=== PATIENT | male | born 1965 | race Caucasian/White ===

== ENCOUNTER 2022-03-31 08:53 | Outpatient (CLI) | payer BC, SELFPAY ==
--- NOTE | 2022-03-31 09:15 | CRLHL7_ITS ---
For Patients: As a result of the Century Cures Act, medical imaging exams and procedure reports are released immediately into your electronic medical record. You may view this report before your referring provider. If you have questions, please contact your health care provider. Technique: Double-contrast esophagram performed after the uneventful administration of effervescent crystals and thick barium followed by thin barium. Fluoroscopy time 1 minutes 10 seconds. Indication: Dysphagia Comparison: None. Findings: Esophagus: Normal morphology and motility. No stricture or mass. Gastroesophageal reflux: None. Impression: Normal double-contrast esophagram. Specifically, the mid/proximal esophagus appears normal without mucosal abnormality or stricture. Dictated by Yazan Madrid MD @ 03/31/2022 11:37:17 AM (Electronically Signed)
== END 2022-03-31 08:54 | disposition home or self-care (01) ==
LOC: RAD 08:53
PROVIDERS: PCP Internal Medicine; Visit Provider Otolaryngology
DX: R13.10 Dysphagia, unspecified (principal)
CPT/HCPCS: 74221

== ENCOUNTER 2022-05-31 06:24 | Day surgery (SDC) | payer BC, SELFPAY ==
[2022-05-31] VITALS (8 sets, daily range): BP systolic 120–132; BP diastolic 74–87; PULSE 63–76; RESP 14–18; TEMP 36.1–36.4; O2SAT 97–100; BMI 62.5
[2022-05-31] MEDS: BUPIVACAINE 0.5% 30 ML INJECTION (07:00)
--- NOTE | 2022-05-31 07:36 | P.ORPRC_ITS ---
Procedure Note Date of procedure: 05/31/22 Procedure: PREOPERATIVE DIAGNOSIS: 1. Left index finger flexor tenosynovitis - trigger finger POSTOPERATIVE DIAGNOSIS: 1. Left index finger flexor tenosynovitis - trigger finger PROCEDURE: 1. Left index finger flexor tendon sheath open release (A1 ton) SURGEON: Wally Patterson MD. REGIONAL OFFICE COORDINATOR: Juan David Blackwell PA-C ANESTHESIA: Local anesthetic 4 mL via 50:50 mixture of 1% lidocaine with epi and 0.5% marcaine plain EBL: 2ml IMPLANTS: None TOURNIQUET: None COMPLICATIONS: None evident INDICATIONS: The patient is a pleasant 57-year-old male who has experienced left index finger catching/triggering for number of months. It has progressively gotten worse. Given the failure of nonoperative management, and how this affects daily life, surgery was recommended. DESCRIPTION OF PROCEDURE: Following a thorough discussion of risks, benefits, and alternatives consent was obtained and the operative digit(s) was marked. The patient was brought to the operating room and placed supine on the operating table. Local anesthesia induction was undertaken in preop holding. No antibiotics were administered as this was planned to be a local case only. Proper time-out was performed identifying proper patient, site, and procedure. The operative extremity was prepped and draped in the appropriate sterile fashion using ChloraPrep. A incision was made on the palmar surface of the hand overlying the MCP joint region of the appropriate digit(s) respecting the palmar creases being cautious not to cross these perpendicularly. Sharp incision through the skin, and blunt dissection through subcutaneous tissue allowing protection of crossing neurologic structures. The A1 ton was visualized directly. It was incised sharply with a 15 blade. It was released completely from its distal to proximal extent under direct visualization. The tendon was inspected and found to be mildly striated consistent with some friction. Otherwise, it was intact. The tendon was removed out of the wound, and further inspected. The patient was asked to manually flex and extend the digits and showed no further catching. The catching which was visualized after tourniquet inflation, was no longer evident with reproduction of a manual fist and relaxation. Closure was performed with 4-O nylon in interrupted fashion. Soft dressings were applied, and the patient was transferred to the recovery room in stable condition. PLAN: 1. Encourage elevation of the operative extremity. 2. Range of motion and icing of the fingers and hand/wrist as tolerated/needed. 3. Ibuprofen/acetaminophen as needed for pain control. 4. Follow up with PA visit in 12-16 days for wound check and suture removal.
[2022-05-31] MEDS: NEOMYCIN/BACITRACIN/POLYMYXIN B 1 APPLIC TOPICAL (07:47)
== END 2022-05-31 08:00 | disposition home or self-care (01) ==
PROVIDERS: PCP Internal Medicine; Visit Provider Orthopaedic Surgery Sports Medicine
PROC: (CPT 26055; principal; 2022-05-31 07:15)
DX: M65.322 Trigger finger, left index finger (principal); M65.842 Other synovitis and tenosynovitis, left hand
CPT/HCPCS: 26055; J3490

== ENCOUNTER 2022-11-24 08:09 | Outpatient (CLI) | payer BC, SELFPAY | END 2022-11-24 08:10 | disposition home or self-care (01) | LOC: NFLDREF 11-26 06:58 | PROVIDERS: PCP Internal Medicine; Referring Provider Internal Medicine; Visit Provider Internal Medicine | DX: Z00.00 Encounter for general adult medical examination without abnormal findings (principal); E78.5 Hyperlipidemia, unspecified; R53.1 Weakness; Z12.5 Encounter for screening for malignant neoplasm of prostate | CPT/HCPCS: 80053; 80061; 82607; 82728; 83540; 83550; 84153 ==

== ENCOUNTER 2022-11-27 10:28 | Outpatient (CLI) | payer BC, SELFPAY | END 2022-11-27 10:29 | disposition home or self-care (01) | LOC: NFLDREF 11-29 11:32 | PROVIDERS: PCP Internal Medicine; Referring Provider Internal Medicine; Visit Provider Internal Medicine | DX: Z00.00 Encounter for general adult medical examination without abnormal findings (principal); R53.1 Weakness; E78.5 Hyperlipidemia, unspecified; H66.90 Otitis media, unspecified, unspecified ear | CPT/HCPCS: 85045 ==

== ENCOUNTER 2023-03-06 08:57 | Outpatient (CLI) | payer BC, SELFPAY | END 2023-03-06 08:58 | disposition home or self-care (01) | PROVIDERS: PCP Internal Medicine; Visit Provider Internal Medicine | DX: R53.83 Other fatigue (principal); N39.0 Urinary tract infection, site not specified; R53.1 Weakness; E78.5 Hyperlipidemia, unspecified; Z12.5 Encounter for screening for malignant neoplasm of prostate | CPT/HCPCS: 80053; 80061; 84153; 84443; 87086; 87186 ==

== ENCOUNTER 2023-03-19 11:05 | Outpatient (CLI) | payer BC, SELFPAY | END 2023-03-19 11:06 | disposition home or self-care (01) | LOC: NFLDREF 03-21 06:40 | PROVIDERS: PCP Internal Medicine; Referring Provider Internal Medicine; Visit Provider Internal Medicine | DX: R97.20 Elevated prostate specific antigen [PSA] (principal); N39.0 Urinary tract infection, site not specified | CPT/HCPCS: 84153 ==

== ENCOUNTER 2023-12-18 16:10 | Outpatient (CLI) | payer BC, SELFPAY | END 2023-12-18 16:11 | disposition home or self-care (01) | LOC: NFLDREF 12-19 06:42 | PROVIDERS: PCP Internal Medicine; Referring Provider Internal Medicine; Visit Provider Internal Medicine | DX: E78.5 Hyperlipidemia, unspecified (principal); R53.83 Other fatigue; R97.20 Elevated prostate specific antigen [PSA] | CPT/HCPCS: 80053; 80061; G0103 ==

== ENCOUNTER 2024-01-10 09:15 | Outpatient (RCR) | payer BC, SELFPAY | END 2024-03-13 10:38 | disposition home or self-care (01) | PROVIDERS: PCP Internal Medicine; Visit Provider Physician Assistant Surgical | DX: M75.01 Adhesive capsulitis of right shoulder (principal); Z51.89 Encounter for other specified aftercare | CPT/HCPCS: 97110; 97140; 97161 ==

== ENCOUNTER 2024-03-31 11:27 | Outpatient (CLI) | payer BC, SELFPAY ==
--- NOTE | 2024-03-31 11:15 | MR_ITS ---
[facility] [address] [facility] [address] Phone:?[phone] Fax:?[phone] Referring Physician Information: Wally Patterson M.D. [address] [facility] [address] Phone:?[phone] Fax:?[phone] Patient:Melissa Sosa D.O.B:?1965 Sex:?Male Phone:?[phone] [facility] MRN:?[id number] Exam Date:?03/31/2024 EXAM: MRI of the RIGHT SHOULDER WITHOUT CONTRAST CLINICAL HISTORY: Ongoing right shoulder pain. Evaluate for rotator cuff tear. Adhesive capsulitis of right shoulder. COMPARISONS: Plain radiographs 12/18/2023. TECHNICAL: MRI sequences of the right shoulder: Axials: PD, T2 Coronals: PD, STIR, T2 Sagittals: PD, T2 SEDATION: None CONTRAST: None FINDINGS: Bones: No fracture or suspicious bone marrow signal abnormality. Coracoacromial arch: Acromion: No os acromiale. Type I-II acromion. Acromiohumeral space: The bony distance is unremarkable. Acromioclavicular joint: Mild degenerative changes. There is ill-definition and irregularity of and an ossification within the acromioclavicular ligament. Coracoclavicular ligament: Attenuation and ill-definition. There is superior positioning of the distal clavicle relative to the acromion. Rotator cuff muscles/tendons: Supraspinatus: Bursal sided fraying and mild tendinopathy. No retracted tendon tear or muscular atrophy. Infraspinatus: The infraspinatus tendon and muscle are intact. Teres minor: The teres minor tendon and muscle are intact. Subscapularis: Mild tendinopathy. No muscular atrophy. Labrum and glenohumeral joint: No evidence of labral tear although evaluation is suboptimal because of nonarthrogram technique. Trace glenohumeral joint effusion. No discrete chondral defect or subchondral bone marrow edema/cystic change is seen. There is edema-like signal within and thickening of the inferior glenohumeral ligament/glenohumeral joint capsule. Proximal biceps tendon, long head and short heads: The long and short heads of the proximal biceps tendon are intact. Bursae: Subacromial/subdeltoid: Mild bursitis. Subcoracoid: No convincing subcoracoid bursal thickening/bursitis. IMPRESSION: 1. Findings highly associated with adhesive capsulitis; correlate with active and passive range of motion. 2. Bursal sided fraying and mild tendinopathy of the supraspinatus tendon. 3. Mild subscapularis tendinopathy. 4. No well-defined/discrete retracted rotator cuff tendon tear or rotator cuff muscular atrophy. 5. Mild subacromial/subdeltoid bursitis. 6. 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 Correlate with clinical history. 7. Trace glenohumeral joint effusion. 8. Intact biceps tendon. RCB Electronically signed on 03/31/2024 2:37:00 PM by Ismael Burrows M.D.
--- OUTSIDE RECORDS SUMMARY | 2024-03-31 11:30 | XMS_ITS | Encounter Summary ---
Author Organization [facility] Address [address] [place] [address] Care Team Providers Care Newspaper Publisher Name Role Phone Elsewhere, Pcp Primary Care Provider Unavailabl e Reason for Visit * Reason Onset Date Comments Pre-visit Intake 01/15/2024 Encounter Details Date Type Department Care Team (Latest Contact Info) Description 01/15/2024 2:45 PM CDT Clinical Communication Virtual Review in [place], [place] [address] [place] [address] Pre-visit Intake Social History Tobacco Use Types Packs/Day Years Used Date Smoking Tobacco: Never Smokeless Tobacco: Never Alcohol Use Standard Drinks/Week Comments No 0 (1 standard drink = 0.6 oz pur e alcohol) [facility] Utilities Answer Date Recorded In the past 12 months has th e electric, gas, oil, or water company threatened to shut off services in your home? No 12/31/2023 Exercise Vital Sign Answer Date Recorde d On average, how many days pe r week do you engage in moderate to strenuous exercise (like a brisk walk)? 4 days 12/31/2023 On average, how many minutes do you engage in exercise at this level? 30 min 12/31/2023 Hunger Vital Sign Answer Date Recorded Within the past 12 months, y ou worried that your food would run out before you got the money to buy more. Never true 12/31/19 24 Within the past 12 months, t he food you bought just didn't last and you didn't have money to get more. Never true 12/31/2023 PRAPARE - Transportation Answer Date Re corded In the past 12 months, has l ack of transportation kept you from medical appointments or from getting medications? No 12/16 In the past 12 months, has l ack of transportation kept you from meetings, work, or from getting things needed for daily living? No 12/31/2023 Nutrition Answer Date Recorded On average, how many serving s of fruits and vegetables do you eat per day (serving size is equal to 1 cup or approximately the size of a tennis ball)? 3-5 12/31/2023 Dental Answer Date Recorded Dental: Regular Dentist Yes 12/31/19 Employment Answer Date Recorded Employment status Retired 12/31/2023 Housing Stability Answer Date Recorded What is your living situation today? I have a [facility] place to live 12/31/2023 Sex and Gender Information Value Date Recorded Sex Assigned at Male 03/12/2018 9:14 AM CDT Gender Identity Male 03/12/2018 9:14 AM CDT Sexual Orientation Straight 03/12/2018 9: 14 AM CDT documented as of this encounter Plan of Treatment Not on file documented as of this encounter Visit Diagnoses Not on filedocumented in this encounter Care Teams Newspaper Publisher Relationship Specialty Start Date End Date Elsewhere, Pcp PCP - General Family Medicine 04/22/18 documented as of this encounter
--- OUTSIDE RECORDS SUMMARY | 2024-03-31 11:30 | XMS_ITS | Encounter Summary ---
Author Organization [facility] Address [address] [place] [id number] Care Team Providers Care Set Designer Name Role Phone Elsewhere, Pcp Primary Care Provider Unavailabl e Reason for Visit * Outpatient (Routine) - Closed Specialty Diagnoses / Procedures Referred By Stacey maxwell Referred To Contact Orthopedic Surgery Latanya Malloy P.A.-C. [address] [place] [phone] Steev Villarreal M.D. [address] [place] [phone] Referral ID Status Reason Start Date Expiration Date Visits Re quested Visits Authorized [id number] Closed 01/07/2024 07/08/2025 1 1 Encounter Details Date Type Department Care Team (Late st Contact Info) Description 02/29/2024 2:30 PM CDT Office Visit Department of Orthopedic Surgery in [place], [place] [address] [place] [phone] Steve Villarreal M.D. [address] [place] [phone] Fusion Ankle Status Post (Primary Dx); Pain Joint Foot Left; Neuralgia Social History Tobacco Use Types Packs/Day Years Used Date Smoking Tobacco: Never Smokeless Tobacco: Never Alcohol Use Standard Drinks/Week Comments No 0 (1 standard drink = 0.6 oz pur e alcohol) [facility] Utilities Answer Date Recorded In the past 12 months has [employer], gas, oil, or water [employer] threatened to shut off services in your [...] money to buy more. Never true 12/31/19 Within the past 12 months, t he [...] your living situation today? I have a [facility] place to live 12/31/2023 Sex and Gender Information Value Date Recorded Sex Assigned at Male 03/12/2018 9:14 AM CDT Gender Identity Male 03/12/2018 9:14 AM CDT Sexual Orientation Straight 03/12/2018 9: 14 AM CDT documented as of this encounter Progress Notes * Steve Villarreal M.D. - 02/29/2024 2:30 PM CDT CHIEF COMPLAINT / PURPOSE OF VISIT: 1. Status post left ankle irrigation and debridement for septic arthritis 2. Left ankle arthrodesis with application of Nayeli spatial frame (May 13, 2018) 3. Status post left Nayeli spatial frame removal (August 21, 2018) 4. Left lower extremity intermittent sharp leg pains 5. Left forefoot pain, likely metatarsalgia HISTORY OF PRESENT ILLNESS: Steve Sosa returns for follow-up today. For further details, please refer my last note on January 07, 2024. His symptoms continue to persist. He did undergo the ultrasound-guided diagnosis and the intermediate dorsal cutaneous branch of the superficial peroneal nerve was injected. This might have helped his forefoot start-up pain but it is difficult to tell if this is help the shooting nerve pains(because these are more intermittent). PHYSICAL EXAMINATION: General: Awake and alert. No acute distress Skin: The skin is intact. Musc: Alignment ankle is satisfactory. Neuro: Sensation intact to light touch throughout but again decreased in a stocking-glove pattern up to knee level on the left. Vasc: Toes are well perfused No tenderness to palpation today. IMAGING: The ultrasound on February 29, 2024 demonstrated an area of thickening of the intermediate dorsal cutaneous branch of the superficial peroneal nerve. This area was injected. The EMG results from February 29, 2024 are also noted. ASSESSMENT & PLAN: The injection of the nerve seemed to help his vague deep forefoot start-up pain. However, difficultto tell if the shooting nerve pains that are radiating up the leg were effected. I recommended monitoring for this for now. Currently, I do not think that further surgical intervention will reliably improve his situation. I am hopeful that the injection will help calmed down the nerve pains. This is likely in the peroneal nerve distribution. It is possible that the pain is coming from his back but difficult to tell. However, I do not think that foot and ankle orthopedic surgery will improve hissituation. Therefore, he will continue with activities as tolerated. We will monitor the effects ofthe injection. He can continue with activities as tolerated. He can follow up with me on as-needed basis documented in this encounter Plan of Treatment Not on file documented as of this encounter Visit Diagnoses Diagnosis Fusion Ankle Status Post- Primary Pain Joint Foot Left Neuralgia documented in this encounter Care Teams Set Designer Relationship Specialty Start Date End Date Elsewhere, Pcp PCP - General Family Medicine 04/22/18 documented as of this encounter
--- OUTSIDE RECORDS SUMMARY | 2024-03-31 11:30 | XMS_ITS | Encounter Summary ---
Author Organization [facility] Er Address [address] [place] [id number] Care Team Providers Care Painting Department Supervisor Name Role Phone Elsewhere, Pcp Primary Care Provider Unavailabl e Reason for Referral * Outpatient (Routine) - Closed Specialty Diagnoses / Procedures Referred By Stacey maxwell Referred To Contact Diagnoses Neuralgia Procedures RAD US Peripheral Nerve Injection Left Latayna Malloy P.A.-C. [address] [place] [address] [facility] Referral ID Status Reason Start Date Expiration Date Visits Re quested Visits Authorized [id number] Closed 01/16/2024 01/15/2025 1 1 * Outpatient (Routine) - Closed Specialty Diagnoses / Procedures Referred By Stacey maxwell Referred To Contact Diagnoses Neuralgia Procedures US Lower Extremity Nerves Left Latanya Malloy P.A.-C. [address] [place] [address] [facility] Referral ID Status Reason Start Date Expiration Date Visits Re quested Visits Authorized [id number] Closed 01/16/2024 01/15/2025 1 1 Encounter Details Date Type Department Care Team (Late st Contact Info) Description 01/16/2024 Orders Only Department of Orthopedic Surgery in [place], [place] [address] [place] [id number] Latanya Malloy P.A.-C. [address] [place] [address] Neuralgia (Primary Dx) Social History Tobacco Use Types Packs/Day Years Used Date Smoking Tobacco: Never Smokeless Tobacco: Never Alcohol Use Standard Drinks/Week Comments No 0 (1 standard drink = 0.6 oz pur e alcohol) [facility] Utilities Answer Date Recorded In the past 12 months has th e [employer], gas, oil, or water [employer] threatened to shut off services in your [...] your living situation today? I have a [facility] to live 12/31/2023 Sex and Gender Information Value Date Recorded Sex Assigned at Male 03/12/2018 9:14 AM CDT Gender Identity Male 03/12/2018 9:14 AM CDT Sexual Orientation Straight 03/12/2018 9: 14 AM CDT documented as of this encounter Plan of Treatment Not on file documented as of this encounter Results * RAD US Peripheral Nerve Injection Left (02/29/2024 10:33 AM CDT) Anatomical Region Laterality Modality Ultrasound RST LOS, Ultrasound ARZ LOS, Jade wilsonetal FLA LOS Ultrasound Impressions 02/29/2024 10:54 AM CDT Sonographic interrogation of the following left-sided lower extremity nerves were performed: 1. Sciatic nerve from the level of the ischial tuberosity to the distal thigh. 2. Tibial nerve from its sciatic bifurcation through the mid leg. 3. Common peroneal nerve from its sciatic bifurcation and its superficial and deep branches through the midfoot/forefoot. The sciatic and tibial nerves are unremarkable without associated soft tissue masses or hypoechoic fluid collections. The common peroneal nerve is also unremarkable without sonographic findings to suggest significant compression as it traverses the musculoaponeurotic arch of the peroneus longus at the level of the knee. No sonographic findings for an intraneural ganglion cyst. The deep peroneal nerve from its common peroneal bifurcation is difficult to clearly identify in the middle third of the leg due to its relatively deep location. The remainder of the deep peroneal nerve to the level of the forefoot is unremarkable. There are no associated soft tissue masses or hypoechoic fluid collections. The superficial peroneal nerve from its common peroneal bifurcation through the ankle is unremarkable. The medial dorsal cutaneous branch of the superficial peroneal nerve through the forefoot is also unremarkable. The intermediate dorsal cutaneous branch of the superficial peroneal nerve demonstrates mild hypoechoic enlargement with a monofascicular like appearance through the forefoot which is similar to the contralateral right side. There is, however, minimal hypoechoic enlargement of one of the intermediate dorsal cutaneous nerve branches immediately after crossing over the extensor tendon to the fourth toe in the forefoot. This region slightly reproduces the patient's typical discomfort. There are no associated soft tissue masses or hypoechoic fluid collections in this region. After a thoughtful discussion, it was mutually decided to perform a diagnostic and potentially therapeutic injection of the intermediate dorsal cutaneous branch of the superficial peroneal nerve just proximal to this mild morphologic abnormality. TECHNIQUE: ??The patient's left dorsal forefoot was prepped and draped in the usual sterile fashion. Under sonographic guidance using a transverse in plane lateral to medial approach and a 25-gauge needle, the intermediate dorsal cutaneous branch of the superficial peroneal nerve was targeted just proximal to the above-mentioned mild morphologic abnormality. ??1 cc of 1% lidocaine was carefully and gently hydrodissected about the nerve followed by 1 cc of injectate. ??The patient tolerated the procedure well and there were no immediate complications. Medications: Betamethasone: 3 mg 0.5% ropivacaine: 2.5 mg Since Mr. Sosa's typical pain is intermittent and not present at this time, he will monitor for potential improvement over the following 2 weeks during the corticosteroid phase of his injection. PREPROCEDURE: ??Patient seen and evaluated. Allergies, pertinent medications, and history reviewed. Discussed risks, benefits, alternatives for procedure, and obtained informed consent. Patient understands information and questions answered. Immediately prior to starting the procedure, in the presence of the assisting personnel, procedural pause was conducted to verify correct patient identity and verification of procedure to be performed, and as applicable, correct side and site, correct patient position, availability of implants, special equipment, or special requirements, and all image and specimen identification data. The roles and responsibilities of care team members, residents, and fellows were discussed. NR Narrative 02/29/2024 10:54 AM CDT EXAM: US LOWER EXTREMITY NERVES LEFT, RAD US PERIPHERAL NERVE INJECTION LEFT COMPARISON: 1. Diagnostic ultrasound examination of the left ankle and foot 01/16/2024. 2. MRI examination of the left ankle 01/09/2024. 3. Left foot and ankle radiographs 01/07/2024. Procedure Note Francois Allan M.D. - 02/29/2024 EXAM: US LOWER EXTREMITY NERVES LEFT, RAD US PERIPHERAL NERVE INJECTIONLEFT COMPARISON: 1. Diagnostic ultrasound examination of the left ankle and foot01/16/2024. 2. MRI examination of the left ankle 01/09/2024. 3. Left foot and ankle radiographs 01/07/2024. IMPRESSION: Sonographic interrogation of the following left-sided lower extremitynerves were performed: 1. Sciatic nerve from the level of the ischial tuberosity to the distalthigh. 2. Tibial nerve from its sciatic bifurcation through the mid leg. 3. Common peroneal nerve from its sciatic bifurcation and its superficialand deep branches through the midfoot/forefoot. The sciatic and tibial nerves are unremarkable without associated softtissue masses or hypoechoic fluid collections. The common peroneal nerve is also unremarkable without sonographicfindings to suggest significant compression as it traverses themusculoaponeurotic arch of the peroneus longus at the level of the knee.No sonographic findings for an intraneural ganglion cyst. The deep peroneal nerve from its common peroneal bifurcation is difficultto clearly identify in the middle third of the leg due to its relativelydeep location. The remainder of the deep peroneal nerve to the level ofthe forefoot is unremarkable. There are no associated soft tissue masses or hypoechoic fluid collections. The superficial peroneal nerve from its common peroneal bifurcationthrough the ankle is unremarkable. The medial dorsal cutaneous branch ofthe superficial peroneal nerve through the forefoot is also unremarkable.The intermediate dorsal cutaneous branch of the superficial peroneal nerve demonstrates mild hypoechoicenlargement with a monofascicular like appearance through the forefootwhich is similar to the contralateral right side. There is, however,minimal hypoechoic enlargement of one of the intermediate dorsal cutaneous nerve branches immediately after crossingover the extensor tendon to the fourth toe in the forefoot. This regionslightly reproduces the patient's typical discomfort. There are noassociated soft tissue masses or hypoechoic fluid collections in this region. After a thoughtful discussion, it was mutually decided to perform adiagnostic and potentially therapeutic injection of the intermediatedorsal cutaneous branch of the superficial peroneal nerve just proximal tothis mild morphologic abnormality. TECHNIQUE: The patient's left dorsal forefoot was prepped and draped inthe usual sterile fashion. Under sonographic guidance using a transversein plane lateral to medial approach and a 25-gauge needle, theintermediate dorsal cutaneous branch of the superficial peroneal nerve was targeted just proximal to theabove-mentioned mild morphologic abnormality. 1 cc of 1% lidocaine wascarefully and gently hydrodissected about the nerve followed by 1 cc ofinjectate. The patient tolerated the procedure well and there were no immediate complications. Medications: Betamethasone: 3 mg 0.5% ropivacaine: 2.5 mg Since Mr. Sosa's typical pain is intermittent and not present at thistime, he will monitor for potential improvement over the following 2 weeksduring the corticosteroid phase of his injection. PREPROCEDURE: Patient seen and evaluated. Allergies, pertinentmedications, and history reviewed. Discussed risks, benefits, alternativesfor procedure, and obtained informed consent. Patient understandsinformation and questions answered. Immediately prior to starting the procedure, in the presence of the assistingpersonnel, procedural pause was conducted to verify correct patientidentity and verification of procedure to be performed, and as applicable,correct side and site, correct patient position, availability of implants, special equipment, or specialrequirements, and all image and specimen identification data. The rolesand responsibilities of care team members, residents, and fellows werediscussed. NR Latanya Malloy P.A.-C. IMG US PROCEDURES * US Lower Extremity Nerves Left (02/29/2024 10:33 AM CDT) Anatomical Region Laterality Modality Ultrasound RST LOS, Ultrasound ARZ LOS, Jade keletal FLA LOS Ultrasound Impressions 02/29/2024 10:54 AM CDT Sonographic interrogation of the following left-sided lower extremity nerves were performed: 1. Sciatic nerve from the level of the ischial tuberosity to the distal thigh. 2. Tibial nerve from its sciatic bifurcation through the mid leg. 3. Common peroneal nerve from its sciatic bifurcation and its superficial and deep branches through the midfoot/forefoot. The sciatic and tibial nerves are unremarkable without associated soft tissue masses or hypoechoic fluid collections. The common peroneal nerve is also unremarkable without sonographic findings to suggest significant compression as it traverses the musculoaponeurotic arch of the peroneus longus at the level of the knee. No sonographic findings for an intraneural ganglion cyst. The deep peroneal nerve from its common peroneal bifurcation is difficult to clearly identify in the middle third of the leg due to its relatively deep location. The remainder of the deep peroneal nerve to the level of the forefoot is unremarkable. There are no associated soft tissue masses or hypoechoic fluid collections. The superficial peroneal nerve from its common peroneal bifurcation through the ankle is unremarkable. The medial dorsal cutaneous branch of the superficial peroneal nerve through the forefoot is also unremarkable. The intermediate dorsal cutaneous branch of the superficial peroneal nerve demonstrates mild hypoechoic enlargement with a monofascicular like appearance through the forefoot which is similar to the contralateral right side. There is, however, minimal hypoechoic enlargement of one of the intermediate dorsal cutaneous nerve branches immediately after crossing over the extensor tendon to the fourth toe in the forefoot. This region slightly reproduces the patient's typical discomfort. There are no associated soft tissue masses or hypoechoic fluid collections in this region. After a thoughtful discussion, it was mutually decided to perform a diagnostic and potentially therapeutic injection of the intermediate dorsal cutaneous branch of the superficial peroneal nerve just proximal to this mild morphologic abnormality. TECHNIQUE: ??The patient's left dorsal forefoot was prepped and draped in the usual sterile fashion. Under sonographic guidance using a transverse in plane lateral to medial approach and a 25-gauge needle, the intermediate dorsal cutaneous branch of the superficial peroneal nerve was targeted just proximal to the above-mentioned mild morphologic abnormality. ??1 cc of 1% lidocaine was carefully and gently hydrodissected about the nerve followed by 1 cc of injectate. ??The patient tolerated the procedure well and there were no immediate complications. Medications: Betamethasone: 3 mg 0.5% ropivacaine: 2.5 mg Since Mr. Sosa's typical pain is intermittent and not present at this time, he will monitor for potential improvement over the following 2 weeks during the corticosteroid phase of his injection. PREPROCEDURE: ??Patient seen and evaluated. Allergies, pertinent medications, and history reviewed. Discussed risks, benefits, alternatives for procedure, and obtained informed consent. Patient understands information and questions answered. Immediately prior to starting the procedure, in the presence of the assisting personnel, procedural pause was conducted to verify correct patient identity and verification of procedure to be performed, and as applicable, correct side and site, correct patient position, availability of implants, special equipment, or special requirements, and all image and specimen identification data. The roles and responsibilities of care team members, residents, and fellows were discussed. NR Narrative 02/29/2024 10:54 AM CDT EXAM: US LOWER EXTREMITY NERVES LEFT, RAD US PERIPHERAL NERVE INJECTION LEFT COMPARISON: 1. Diagnostic ultrasound examination of the left ankle and foot 01/16/2024. 2. MRI examination of the left ankle 01/09/2024. 3. Left foot and ankle radiographs 01/07/2024. Procedure Note Francois Allan M.D. - 02/29/2024 EXAM: US LOWER EXTREMITY NERVES LEFT, RAD US PERIPHERAL NERVE INJECTIONLEFT COMPARISON: 1. Diagnostic ultrasound examination of the left ankle and foot01/16/2024. 2. MRI examination of the left ankle 01/09/2024. 3. Left foot and ankle radiographs 01/07/2024. IMPRESSION: Sonographic interrogation of the following left-sided lower extremitynerves were performed: 1. Sciatic nerve from the level of the ischial tuberosity to the distalthigh. 2. Tibial nerve from its sciatic bifurcation through the mid leg. 3. Common peroneal nerve from its sciatic bifurcation and its superficialand deep branches through the midfoot/forefoot. The sciatic and tibial nerves are unremarkable without associated softtissue masses or hypoechoic fluid collections. The common peroneal nerve is also unremarkable without sonographicfindings to suggest significant compression as it traverses themusculoaponeurotic arch of the peroneus longus at the level of the knee.No sonographic findings for an intraneural ganglion cyst. The deep peroneal nerve from its common peroneal bifurcation is difficultto clearly identify in the middle third of the leg due to its relativelydeep location. The remainder of the deep peroneal nerve to the level ofthe forefoot is unremarkable. There are no associated soft tissue masses or hypoechoic fluid collections. The superficial peroneal nerve from its common peroneal bifurcationthrough the ankle is unremarkable. The medial dorsal cutaneous branch ofthe superficial peroneal nerve through the forefoot is also unremarkable.The intermediate dorsal cutaneous branch of the superficial peroneal nerve demonstrates mild hypoechoicenlargement with a monofascicular like appearance through the forefootwhich is similar to the contralateral right side. There is, however,minimal hypoechoic enlargement of one of the intermediate dorsal cutaneous nerve branches immediately after crossingover the extensor tendon to the fourth toe in the forefoot. This regionslightly reproduces the patient's typical discomfort. There are noassociated soft tissue masses or hypoechoic fluid collections in this region. After a thoughtful discussion, it was mutually decided to perform adiagnostic and potentially therapeutic injection of the intermediatedorsal cutaneous branch of the superficial peroneal nerve just proximal tothis mild morphologic abnormality. TECHNIQUE: The patient's left dorsal forefoot was prepped and draped inthe usual sterile fashion. Under sonographic guidance using a transversein plane lateral to medial approach and a 25-gauge needle, theintermediate dorsal cutaneous branch of the superficial peroneal nerve was targeted just proximal to theabove-mentioned mild morphologic abnormality. 1 cc of 1% lidocaine wascarefully and gently hydrodissected about the nerve followed by 1 cc ofinjectate. The patient tolerated the procedure well and there were no immediate complications. Medications: Betamethasone: 3 mg 0.5% ropivacaine: 2.5 mg Since Mr. Sosa's typical pain is intermittent and not present at thistime, he will monitor for potential improvement over the following 2 weeksduring the corticosteroid phase of his injection. PREPROCEDURE: Patient seen and evaluated. Allergies, pertinentmedications, and history reviewed. Discussed risks, benefits, alternativesfor procedure, and obtained informed consent. Patient understandsinformation and questions answered. Immediately prior to starting the procedure, in the presence of the assistingpersonnel, procedural pause was conducted to verify correct patientidentity and verification of procedure to be performed, and as applicable,correct side and site, correct patient position, availability of implants, special equipment, or specialrequirements, and all image and specimen identification data. The rolesand responsibilities of care team members, residents, and fellows werediscussed. NR Latanya PIERCE US PROCEDURES documented in this encounter Visit Diagnoses Diagnosis Neuralgia- Primary Neuralgia Neuralgia documented in this encounter Care Teams Painting Department Supervisor Relationship Specialty Start Date End Date Elsewhere, Pcp PCP - General Family Medicine 04/22/18 documented as of this encounter
--- OUTSIDE RECORDS SUMMARY | 2024-03-31 11:30 | XMS_ITS | Referral Summary ---
Author Organization [facility] Address [address] [place] [id number] Care Team Providers Care Ladderman Name Role Phone Elsewhere, Pcp Primary Care Provider Unavailabl e Source Comments Patient records contain information from all sites at [facility]. For routine questions regarding patient records, call [phone] during business hours, M-F 8:00 AM - 5:00 PM Central Time. Record requests for emergency care only can be directed to [phone] at any time.[facility] Encounters Date Type Department Care Team Description 02/29/2024 2:30 PM CDT Office Visit Department of Orthopedic Surgery in [place], [place] [address] [place] [phone] Steve Villarreal M.D. Fusion Ankle Status Post (Primary Dx); Pain Joint Foot Left; Neuralgia 02/29/2024 11:48 AM CDT - 02/29/2024 11:59 PM CDT Hospital Encounter Department of Neurology in [place], [place] [address] [place] [phone] Latanya Malloy, P.A.-CWest Fusion Ankle Status Post; Neuralgia Discharge Disposition: Home or Self Care 02/29/2024 8:27 AM CDT - 02/29/2024 10:00 AM CDT Hospital Encounter Department of Radiology, [facility], in [place], [place] [address] [place] [address] Latanya Malloy P.A.-C. Neuralgia Discharge Disposition: Home or Self Care 02/29/2024 8:25 AM CDT - 02/29/2024 11:47 AM CDT Hospital Encounter Department of Radiology, [facility], in [place], [place] [address] [place] [phone] Latanya Malloy P.A.-C. Neuralgia Discharge Disposition: Home or Self Care 01/16/2024 Orders Only Department of Orthopedic Surgery in [address] [phone] Latanya Malloy P.A.-C. Neuralgia (Primary Dx) 01/16/2024 Clinical Communication Department of Orthopedic Surgery in [address] [phone] Steve Villarreal M.D. 01/16/2024 8:11 AM CDT - 01/16/2024 10:08 AM CDT Hospital Encounter Department of Radiology, [facility], in [address] [phone] Latanya Malloy P.A.-C. Fusion Ankle Status Post; Neuralgia Discharge Disposition: Home or Self Care 01/15/2024 2:45 PM CDT Clinical Communication Virtual Review in [place], [place] 200 [place] [address] Pre-visit Intake 01/09/2024 5:53 PM CDT - 01/09/2024 11:59 PM CDT Hospital Encounter Department of Radiology, [facility], in [address] [phone] Latanya Malloy P.A.-Ashley Fusion Ankle Status Post; Neuralgia Discharge Disposition: Home or Self Care 01/09/2024 5:52 PM CDT Hospital Encounter Department of Radiology, [facility], in [address] [phone] Latanya Malloy P.A.-C. Fusion Ankle Status Post; Neuralgia Discharge Disposition: Home or Self Care 01/07/2024 Clinical Communication Department of Orthopedic Surgery in [place], [place] [address] [place] [phone] Steve Villarreal M.D. Question 01/07/2024 8:50 AM CDT - 01/07/2024 11:59 PM CDT Hospital Encounter Department of Radiology, [facility], in [place], [place] [address] [place] [address] Latanya Malloy P.A.-C. Pain Joint Foot Left Discharge Disposition: Home or Self Care 01/07/2024 10:30 AM CDT Comprehensive Visit Department of Orthopedic Surgery in [place], [place] [address] [place] [address] Steve Villarreal M.D. Fusion Ankle Status Post (Primary Dx); Pain Joint Foot Left; Neuralgia from Last 3 Months Allergies Active Allergy Reactions Criticality Noted Date Comments Ceftriaxone Hives (Reselect Reaction) High 05/10/2018 hives on head on 6th week of infusion Oxycodone Headache Medium 05/10/2018 Medications Medication Sig Dispensed Refills Start Date End Date Status simvastatin (ZOCOR) 40 mg tablet Take 40 mg by mouth at bedtime. Active acetaminophen (TYLENOL) 500 mg tablet Take 2 tablets (1,000 mg total) by mouth every 6 (six) hours. 100 tablet 1 05/15/2018 Active Additional Information Patient taking differently:1,000 mg oralEvery 6 hours PRN, Informant: Self, Reported on 01/15/2024 triamcinolone (Nasacort) 55 mcg/actuation nasal spray PRN seasonal allergies 10/12/2021 Active famotidine (PEPCID) 20 mg tablet Take 1 tablet by mouth 2 (two) times a day. 08/02/2022 Active cetirizine (ZyrTEC) 10 mg tablet Take 1 tablet by mouth daily. 05/09/2022 Active Active Problems Problem Noted Date Diagnosed Date Neuralgia 02/29/2024 Pain Joint Foot Left 01/02/2024 Pain Ankle Left 07/24/2018 Overview: Added automatically from request for surgery [id number] Fusion Ankle Status Post 05/13/2018 Arthritis Pyogenic Ankle 04/09/2018 Overview: Added automatically from request for surgery [id number] Hyperlipidemia 03/15/2018 Arthritis Septic 03/15/2018 Arthritis Infectious Ankle And Foot 03/12/2018 Overview: Added automatically from request for surgery [id number] Social History Tobacco Use Types Packs/Day Years Used Date Smoking Tobacco: Never Smokeless Tobacco: Never Alcohol Use Standard Drinks/Week Comments No 0 (1 standard drink = 0.6 oz pur e alcohol) [facility] Utilities Answer Date Recorded In [...] your living situation today? I have a [facility] place to live 12/31/2023 Sex and Gender Information Value Date Recorded Sex Assigned at Male 03/12/2018 9:14 AM CDT Gender Identity Male 03/12/2018 9:14 AM CDT Sexual Orientation Straight 03/12/2018 9: 14 AM CDT Last Filed Vital Signs Vital Sign Reading Time Taken Comments Blood Pressure 126/82 05/12/2019 1:39 PM CDT Pulse 72 05/12/2019 1:39 PM CDT Temperature 36.3 ??C (97.3 ??F) 05/12/2019 1:39 PM CD T Respiratory Rate 16 05/12/2019 1:39 PM CDT Oxygen Saturation 98% 05/12/2019 1:39 PM CDT Inhaled Oxygen Concentration - - Weight 103 kg (226 lb 6.6 oz) 05/12/2019 1:39 PM CDT Height 183.3 cm (6' 0.17) 05/12/2019 1:39 PM CD T Body Mass Index 30.57 05/12/2019 1:39 PM CDT Plan of Treatment Not on file Medical Devices Explanted Type Area Contract Engineer Device Identifier Shelf Expiration Date Model / Serial / Lot Cmnt Bn Hi Visc Pmma 20 - [id number] Implanted:Qty: 1 on 03/15/2018 by Steve Villarreal M.D. at [facility] Explanted:Qty: 1 on 05/13/2018 at [facility] Bone Cement Left: Ankle Marquis 02/15/2020 [id number] / / [id number] Description:Left ankle antib iotic beads Ranco Cubes 1 Hole With Post Implanted:Qty: 1 on 05/13/2018 at [facility] Explanted:Qty: 1 on 08/21/2018 by Steve Villarreal M.D. at [facility] Hardware e.g. pins/screws /rods [employer] [id number] / / Rancho Cube 3 Hole Implanted:Qty: 3 on 05/13/2018 at [facility] Explanted:Qty: 3 on 08/21/2018 by Steve Villarreal M.D. at [facility] Hardware e.g. pins/screws /rods [employer] [id number] / / Rancho Cubes 4 Hole Implanted:Qty: 1 on 05/13/2018 at [facility] Explanted:Qty: 1 on 08/21/2018 by Steve Villarreal M.D. at [facility] Hardware e.g. pins/screws /rods [employer] [id number] / / Fast Fx Struts Medium, 143-205mm Implanted:Qty: 6 on 05/13/2018 at [facility] Explanted:Qty: 6 on 08/21/2018 by Steve Villarreal M.D. at [facility] Hardware e.g. pins/screws /rods [employer] [id number] / / Centering Sleeve 6mm, For Use With [id number] And [id number] Implanted:Qty: 4 on 05/13/2018 at [facility] Explanted:Qty: 4 on 08/21/2018 by Steve Villarreal M.D. at [facility] Hardware e.g. pins/screws /rods [employer] [id number] / / Connection Bolts Implanted:Qty: 3 on 05/13/2018 at [facility] Explanted:Qty: 3 on 08/21/2018 by Steve Villarreal M.D. at [facility] Hardware e.g. pins/screws /rods [employer] [id number] / / Connection Bolts, 10mm Implanted:Qty: 1 on 05/13/2018 at [facility] Explanted:Qty: 1 on 08/21/2018 by Steve Villarreal M.D. at [facility] Hardware e.g. pins/screws /rods [employer] [id number] / / Connection Bolts, 16mm Implanted:Qty: 4 on 05/13/2018 at [facility] Explanted:Qty: 4 on 08/21/2018 by Steve Villarreal M.D. at [facility] Hardware e.g. pins/screws /rods [employer] [id number] / / Ilizarov Wires ([place]) ([facility]) Implanted:Qty: 6 on 05/13/2018 at [facility] Explanted:Qty: 6 on 08/21/2018 by Steve Villarreal M.D. at [facility] Hardware e.g. pins/screws /rods [employer] [id number] / / Half Rings, Aluminum, 155mm Implanted:Qty: 1 on 05/13/2018 at [facility] Explanted:Qty: 1 on 08/21/2018 by Steve Villarreal M.D. at [facility] Hardware e.g. pins/screws /rods [employer] [id number] / / [id number] Rouse Coated Half Pin Implanted:Qty: 4 on 05/13/2018 at [facility] Explanted:Qty: 4 on 08/21/2018 by Steve Villarreal M.D. at [facility] Hardware e.g. pins/screws /rods [employer] [id number] / / Foot Rings, Aluminum, 155mm Long Implanted:Qty: 1 on 05/13/2018 at [facility] Explanted:Qty: 1 on 08/21/2018 by Steve Villarreal M.D. at [facility] Hardware e.g. pins/screws /rods [employer] [id number] / / Id Bands, Fast Fx Strut Kit Implanted:Qty: 2 on 05/13/2018 at [facility] Explanted:Qty: 2 on 08/21/2018 by Steve Villarreal M.D. at [facility] Hardware e.g. pins/screws /rods [employer] [id number] / / 10mm Nuts Implanted:Qty: 24 on 05/13/2018 at [facility] Explanted:Qty: 24 on 08/21/2018 by Steve Villarreal M.D. at [facility] Hardware e.g. pins/screws /rods [employer] [id number] / / Wire Fixation Bolts, Comination Cannulated Slotted Implanted:Qty: 3 on 05/13/2018 at [facility] Explanted:Qty: 3 on 08/21/2018 by Steve Villarreal M.D. at [facility] Hardware e.g. pins/screws /rods [employer] [id number] / / [place] Wire Fixation [place] Implanted:Qty: 12 on 05/13/2018 at [facility] Explanted:Qty: 12 on 08/21/2018 by Steve Villarreal M.D. at [facility] Hardware e.g. pins/screws /rods [employer] [id number] / / Pin Fix Stn Troc Pt Thrd - [id number] Implanted:Qty: 2 on 05/13/2018 at [facility] Explanted:Qty: 2 on 08/21/2018 by Steve Villarreal M.D. at [facility] Hardware e.g. pins/screws /rods Marquis [id number] / / 35mm Angled Pin Connectors Implanted:Qty: 1 on 05/13/2018 at [facility] Explanted:Qty: 1 on 08/21/2018 by Steve Villarreal M.D. at [facility] Hardware e.g. pins/screws /rods [employer] [id number] / / Slotted Washer 4.0mm Thick Implanted:Qty: 11 on 05/13/2018 at [facility] Explanted:Qty: 11 on 08/21/2018 by Steve Villarreal M.D. at [facility] Hardware e.g. pins/screws /rods [employer] [id number] / / Extended Connectors 50mm Implanted:Qty: 11 on 05/13/2018 at [facility] Explanted:Qty: 11 on 08/21/2018 by Steve Villarreal M.D. at [facility] Hardware e.g. pins/screws /rods [employer] [id number] / / Half Pin Caps 6mm, [place] Implanted:Qty: 12 on 05/13/2018 at [facility] Explanted:Qty: 12 on 08/21/2018 by Steve Villarreal M.D. at [facility] Hardware e.g. pins/screws /rods [employer] [id number] / / 155mm, 7 Hole Master Tab Implanted:Qty: 1 on 05/13/2018 at [facility] Explanted:Qty: 1 on 08/21/2018 by Steve Villarreal M.D. at [facility] Hardware e.g. pins/screws /rods [employer] [id number] / / Set Screw Implanted:Qty: 3 on 05/13/2018 at [facility] Explanted:Qty: 3 on 08/21/2018 by Steve Villarreal M.D. at [facility] Hardware e.g. pins/screws /rods [employer] [id number] / / Procedures Procedure Name Priority Date/Time Associated Diagnosis Comments EMG Routine 02/29/2024 11:48 AM CDT Fusion Ankle Status Post Neuralgia RAD US PERIPHERAL NERVE INJECTION LEFT RAD - Routine (most inpatients and all outpatients) 02/29/2024 10:33 AM CDT Neuralgia RAD US LOWER EXTREMITY NERVES LEFT RAD - Routine (most inpatients and all outpatients) 02/29/2024 10:33 AM CDT Neuralgia RAD US LOWER EXTREMITY NERVES LEFT RAD - Routine (most inpatients and all outpatients) 01/16/2024 10:08 AM CDT Fusion Ankle Status Post Neuralgia MR ANKLE LEFT WITHOUT IV CONTRAST RAD - Routine (most inpatients and all outpatients) 01/09/2024 7:04 PM CDT Fusion Ankle Status Post Neuralgia DX FOOT ANKLE LEFT 3+ VIEWS RAD - Routine (most inpatients and all outpatients) 01/07/2024 9:41 AM CDT Pain Joint Foot Left from Last 3 Months Results * EMG (02/29/2024 11:48 AM CDT) 02/29/2024 12:1 5 PM CDT [facility] EMG - 02/29/2024 1:03 PM CDT Table formatting from the original result was not included. 29-Feb-2024 ? Electromyography ? Final Report Study Number: 1 EMG Real Estate Paralegal: Brain Thorne 127 or [phone] Referred by: LATANYA MALLOY ([phone])) Referred for: Neuralgia Referral Code: RX: 001 SUMMARY: Prior to starting the procedure, the patient's identity was verified, pertinent available records were reviewed, the nature of the procedure was explained, the appropriate sites of the exam were confirmed directly with the patient, and a pre-procedure pause was performed for final verification of all of the above. ?? Nerve conduction studies of the left lower limb were normal. ??Needle examination of the left lower limb showed mildly long duration motor unit potentials isolated to the medial gastrocnemius. CLINICAL INTERPRETATION: There is no convincing electrophysiologic evidence of a length-dependent large fiber peripheral neuropathy or left lumbosacral radiculopathy. ??The borderline abnormal motor unit potentials isolated to the medial gastrocnemius are of uncertain clinical significance and may be related to prior local trauma/injury, although a very mild chronic inactive left S1 radiculopathy is difficult to entirely exclude on this study but is unlikely in the absence of radicular pain. N. Seven (127 et [phone])/SMB NERVE CONDUCTIONS ??Record Rep ?? Normal ??Normal Distal Normal F-Wave F-Wave Temp Nerve Type Site Stim Side Amp Amp CV CV Lat Lat Lat Est (??C) Fibular Motor EDB ??L 4.3 (> 2.0) 43 (> 41) 5.6 (< 6.6) ?? 29.3 Tibial Motor AH ??L 5.7 (> 4.0) 43 (> 40) 5.1 (< 6.1) ?? 29.6 Sural Sensory Ankle ??L 7 (> 6.0) 41 (> 40) 4.0 (< 4.5) ?? 29.4 NEEDLE EMG ??Ins Spont ??MUP ??Recruitment ??Duration ??Amplitude ??Phases ?? Muscle Side Act Fib Fasc Normal Activ Reduced Rapid Long Short High Low % Turns S1 paraspinal L NL 0 0 NL ?25% + Gluteus roberto L NL 0 0 NL ? Tensor fasciae latae L NL 0 0 NL ? Vastus medialis L NL 0 0 NL ? Gastrocnemius (lateral head) L NL 0 0 NL ? Gastrocnemius (medial head) L NL 0 0 ? + ??+ ? Peroneus longus L NL 0 0 NL ? Tibialis anterior L INC 0 0 NL ? This interpretation has been electronically signed: Brain Thorne M.D. at 02/29/2024 1:01:58 PM CDT Procedure Note Greyson Thorne M.D. - 02/29/2024 29-Feb-2024 Electromyography Final Report Study Number: 1 EMG Real Estate Paralegal: Brain Thorne 127 or [phone] Referred by: LATANYA MALLOY ([id number])) Referred for: Neuralgia Referral Code: RX: 001 SUMMARY: Prior to starting the procedure, the patient's identity wasverified, pertinent available records were reviewed, the nature of theprocedure was explained, the appropriate sites of the exam were confirmeddirectly with the patient, and a pre-procedure pause was performed forfinal verification of all of the above. Nerve conduction studies of the left lower limb were normal. Needleexamination of the left lower limb showed mildly long duration motor unitpotentials isolated to the medial gastrocnemius. CLINICAL INTERPRETATION: There is no convincing electrophysiologicevidence of a length-dependent large fiber peripheral neuropathy or leftlumbosacral radiculopathy. The borderline abnormal motor unit potentialsisolated to the medial gastrocnemius are of uncertain clinicalsignificance and may be related to prior local trauma/injury, although brittany mild chronic inactive left S1 radiculopathy is difficult to entirelyexclude on this study but is unlikely in the absence of radicular pain. N. Mati (127 or [phone])/SMB NERVE CONDUCTIONS Record Rep Normal Normal Distal Normal F-Wave F-Wave Temp Nerve Type Site Stim Side Amp Amp CV CV Lat Lat Lat Est (??C) Fibular Motor EDB L 4.3 (> 2.0) 43 (> 41) 5.6 (< 6.6) 29.3 Tibial Motor AH L 5.7 (> 4.0) 43 (> 40) 5.1 (< 6.1) 29.6 Sural Sensory Ankle L 7 (> 6.0) 41 (> 40) 4.0 (< 4.5) 29.4 NEEDLE EMG Ins Spont MUP Recruitment Duration Amplitude Phases Muscle Side Act Fib Fasc Normal Activ Reduced Rapid Long Short High Low %Turns S1 paraspinal L NL 0 0 NL 25% + Gluteus roberto L NL 0 0 NL Tensor fasciae latae L NL 0 0 NL Vastus medialis L NL 0 0 NL Gastrocnemius (lateral head) L NL 0 0 NL Gastrocnemius (medial head) L NL 0 0 + + Peroneus longus L NL 0 0 NL Tibialis anterior L INC 0 0 NL This interpretation has been electronically signed: Brain Thorne M.D. at 02/29/2024 1:01:58 PM CDT Latanya Malloy P.A.-C. NEUROLOGY ORDERAB LES [facility] EMG * RAD US Peripheral Nerve Injection Left [...] Extremity Nerves Left (02/29/2024 10:33 AM CDT) Only the most recent of2 resultswithin the time period is included. Anatomical Region Laterality Modality Ultrasound RST LOS, [...] Latanya Malloy P.A.-C. IMG US PROCEDURES * MR Ankle Left without IV Contrast (01/09/2024 7:04 PM CDT) Anatomical Region Laterality Modality Lower Extremity, Ankle, Musc uloskeletal RST LOS, Musculoskeletal ARZ LOS, Muskuloskeletal FLA LOS Left Magne tic Resonance Impressions 01/10/2024 7:41 AM CDT 1. Extensive postoperative and posttraumatic changes about the left ankle. 2. Scattered degenerative changes, greatest at the subtalar joint where there are areas of high-grade chondromalacia. Additional degenerative change at the second TMT and first MTP joint as described. 3. Possible minimal T2 hyperintensity in the deep peroneal nerve as it traverses over the second TMT joint which could be due to mechanical irritation but correlate with physical exam findings. Consider MSK ultrasound if indicated. 4. Additional details as discussed in the body of the report. Narrative 01/10/2024 7:41 AM CDT EXAM: ??MR ANKLE LEFT WITHOUT IV CONTRAST COMPARISON: ??Radiographs 01/07/2024 and 05/06/2019. CT 07/24/2018. FINDINGS: ??MRI of the left ankle without contrast performed at [facility]. Extensive postoperative and posttraumatic changes about the left ankle with solid tibiotalar arthrodesis, areas of solid bony bridging between the distal fibula and talus, changes related to hardware removal and old healed fracture deformities of the distal tibia and distal fibula. Focus of susceptibility artifact about the anteromedial aspect of the ankle. Scattered areas of high-grade chondromalacia at the subtalar joint within the medial aspect of the posterior facet and within the anterior aspect of the middle facet with subchondral bone marrow edema in the calcaneus (series 7, image 17 and series 5, image 19). Large plantar calcaneal spur with overlying soft tissue edema and mild thickening of the proximal aspect of the middle cord of the plantar fascia. Trace fluid in the retrocalcaneal bursa. Mild distal Achilles tendinopathy. The remainder of the tendons about the ankle are normal in appearance with trace scattered physiologic tenosynovial fluid. There are scattered degenerative changes throughout the foot, greatest at the second TMT joint (series 7, image 20 and at the first MTP joint, greatest between the sesamoids and the metatarsal head (series 12, image 24. Small amount of fluid in the intermetatarsal bursae of the first webspace. Tendinopathy of the extensor hallux longus tendon in the midfoot (series 12, image 11). There is minimal bony prominence at the dorsal aspect of the second TMT joint which the deep peroneal nerve passes over. There is the suggestion of a focal minimally increased T2 signal within the nerve in this region which could represent some mechanical irritation but correlate clinically with physical exam findings (series 7, image 18 and series 8, image 17, also see saved screen shots). In addition, ultrasound may be helpful to verify the findings and correlate with focal reproducible symptoms on sonographic palpation. Procedure Note Shasha Quan M.D. - 01/10/2024 EXAM: MR ANKLE LEFT WITHOUT IV CONTRAST COMPARISON: Radiographs 01/07/2024 and 05/06/2019. CT 07/24/2018. FINDINGS: MRI of the left ankle without contrast performed at [facility]. Extensive postoperative and posttraumatic changes about the left anklewith solid tibiotalar arthrodesis, areas of solid bony bridging betweenthe distal fibula and talus, changes related to hardware removal and oldhealed fracture deformities of the distal tibia and distal fibula. Focus of susceptibility artifact about theanteromedial aspect of the ankle. Scattered areas of high-grade chondromalacia at the subtalar joint withinthe medial aspect of the posterior facet and within the anterior aspect ofthe middle facet with subchondral bone marrow edema in the calcaneus(series 7, image 17 and series 5, image 19). Large plantar calcaneal spur with overlying soft tissue edema and mildthickening of the proximal aspect of the middle cord of the plantarfascia. Trace fluid in the retrocalcaneal bursa. Mild distal Achillestendinopathy. The remainder of the tendons about the ankle are normal in appearance with trace scattered physiologictenosynovial fluid. There are scattered degenerative changes throughout the foot, greatest atthe second TMT joint (series 7, image 20 and at the first MTP joint,greatest between the sesamoids and the metatarsal head (series 12, image24. Small amount of fluid in the intermetatarsal bursae of the first webspace. Tendinopathy of the extensorhallux longus tendon in the midfoot (series 12, image 11). There is minimal bony prominence at the dorsal aspect of the second TMTjoint which the deep peroneal nerve passes over. There is the suggestionof a focal minimally increased T2 signal within the nerve in this regionwhich could represent some mechanical irritation but correlate clinically with physical exam findings(series 7, image 18 and series 8, image 17, also see saved screen shots).In addition, ultrasound may be helpful to verify the findings andcorrelate with focal reproducible symptoms on sonographic palpation. IMPRESSION: 1. Extensive postoperative and posttraumatic changes about the leftankle. 2. Scattered degenerative changes, greatest at the subtalar joint wherethere are areas of high-grade chondromalacia. Additional degenerativechange at the second TMT and first MTP joint as described. 3. Possible minimal T2 hyperintensity in the deep peroneal nerve as ittraverses over the second TMT joint which could be due to mechanicalirritation but correlate with physical exam findings. Consider MSKultrasound if indicated. 4. Additional details as discussed in the body of the report. Latanya Malloy P.A.-C. [facility] MRI PROCEDURE S * DX Foot Ankle Left 3+ Views (01/07/2024 9:41 AM CDT) Anatomical Region Laterality Modality Lower Extremity, Foot, Ankle , Musculoskeletal RST LOS, Musculoskeletal ARZ LOS, Muskuloskeletal FLA LOS Left Digit al Radiography Impressions 01/07/2024 9:49 AM CDT Left ankle arthrodesis. Old fractures of the distal left tibia and fibula. Old screw tracks distal left tibia. Scattered degenerative changes left foot. Calcaneal spurs. Bilateral accessory navicular bones. Left foot demineralized relative to the right. Vascular calcifications. Narrative 01/07/2024 9:49 AM CDT EXAM: ??DX FOOT ANKLE LEFT 3+ VIEWS Procedure Note Mario Patel M.D. - 01/07/2024 EXAM: DX FOOT ANKLE LEFT 3+ VIEWS IMPRESSION: Left ankle arthrodesis. Old fractures of the distal left tibia and fibula.Old screw tracks distal left tibia. Scattered degenerative changes leftfoot. Calcaneal spurs. Bilateral accessory navicular bones. Left footdemineralized relative to the right. Vascular calcifications. Latanya Malloy P.A.-C. IMG DIAGNOSTIC IM AGING PROCEDURES from Last 3 Months Advance Directives For more information, please contact: [phone] * Full Code (Latest Code Status on File) Date Activated Date Inactivated Comments 03/15/2018 5:08 PM 03/18/2018 6:00 PM Question Answer Comments Full Code: Not Discussed Due to: Patient not available Care Teams Ladderman Relationship Specialty Start Date End Date Elsewhere, Pcp PCP - General Family Medicine 04/22/18
--- OUTSIDE RECORDS SUMMARY | 2024-03-31 11:30 | XMS_ITS | Encounter Summary ---
Author Organization [facility] Address [address] [place] [id number] Care Team Providers Care Ton Cylinder Inspector Name Role Phone Elsewhere, Pcp Primary Care Provider Unavailabl e Reason for Referral * Outpatient (Routine) - Closed Specialty Diagnoses / Procedures Referred By Stacey maxwell Referred To Contact Diagnoses Fusion Ankle Status Post Neuralgia Procedures EMG Alyssia Malloy P.A.-C. [address] [place] [phone] [facility] Referral ID Status Reason Start Date Expiration Date Visits Re quested Visits Authorized [id number] Closed 01/07/2024 01/06/2025 1 1 Reason for Visit * Outpatient (Routine) - Closed Specialty Diagnoses / Procedures Referred By Stacey maxwell Referred To Contact Diagnoses Fusion Ankle Status Post Neuralgia Procedures EMG Alyssia Malloy P.A.-C. 200 [place] [address] [facility] Referral ID Status Reason Start Date Expiration Date Visits Re quested Visits Authorized [id number] Closed 01/07/2024 01/06/2025 1 1 Encounter Details Date Type Department Care Team (Latest Contact Info) Description 02/29/2024 11:48 AM CDT - 02/29/2024 11:59 PM CDT Hospital Encounter Department of Neurology in [place], [place] 200 [place] [phone] Alyssia Malloy P.A.-C. [address] [place] [address] [place] [address] Fusion Ankle Status Post; Neuralgia Discharge Disposition: Home or Self Care Social History Tobacco Use Types Packs/Day Years Used Date Smoking Tobacco: Never Smokeless Tobacco: Never Alcohol Use Standard Drinks/Week Comments No 0 (1 standard drink = 0.6 oz pur e alcohol) [facility] Utilities Answer Date Recorded In the past 12 months has th e [employer], gas, oil, or water [employer] threatened to shut off services in your [...] your living situation today? [facility] 12/31/2023 Sex and Gender Information Value Date Recorded Sex Assigned at Male 03/12/2018 9:14 AM CDT Gender Identity Male 03/12/2018 9:14 AM CDT Sexual Orientation Straight 03/12/2018 9: 14 AM CDT documented as of this encounter Medications at Time of Discharge Medication Sig Dispensed Refills Start Date End Date acetaminophen (TYLENOL) 500 mg tablet Take 2 tablets (1,000 mg total) by mouth every 6 (six) hours. 100 tablet 1 05/15/2018 cetirizine (ZyrTEC) 10 mg tablet Take 1 tablet by mouth daily. 05/09/2022 famotidine (PEPCID) 20 mg tablet Take 1 tablet by mouth 2 (two) times a day. 08/02/2022 simvastatin (ZOCOR) 40 mg tablet Take 40 mg by mouth at bedtime. triamcinolone (Nasacort) 55 mcg/actuation nasal spray PRN seasonal allergies 10/12/2021 documented as of this encounter Plan of Treatment Not on file documented as of this encounter Procedures Procedure Name Priority Date/Time Associated Diagnosis Comments EMG Routine 02/29/2024 11:48 AM CDT Fusion Ankle Status Post Neuralgia documented in this encounter Results * EMG (02/29/2024 11:48 AM CDT) 02/29/2024 12:1 5 PM CDT Narrative [facility] EMG - 02/29/2024 1:03 PM CDT Table formatting from the original result was not included. 29-Feb-2024 ? Electromyography ? Final Report Study Number: 1 EMG Marine Chronometer Assembler: Brain Thorne 127 or [phone] Referred by: ALYSSIA MALLOY ([id number])) Referred for: Neuralgia Referral Code: RX: 001 [...] absence of radicular pain. N. Seven (127 or [phone])/SMB NERVE CONDUCTIONS ??Record Rep ?? Normal ??Normal [...] Electromyography Final Report Study Number: 1 EMG Marine Chronometer Assembler: Brain Thorne 127 or [phone] Referred by: ALYSSIA MALLOY ([id number])) Referred for: Neuralgia Referral Code: RX: 001 [...] of radicular pain. N. Mati (127 or [phone])/SMB NERVE CONDUCTIONS Record Rep Normal Normal Distal [...] Thorne M.D. at 02/29/2024 1:01:58 PM CDT Alyssia Malloy P.A.-C. NEUROLOGY ORDERAB LES EMG documented in this encounter Visit Diagnoses Diagnosis Fusion Ankle Status Post Neuralgia documented in this encounter Care Teams Ton Cylinder Inspector Relationship Specialty Start Date End Date Elsewhere, Pcp PCP - General Family Medicine 04/22/18 documented as of this encounter
--- OUTSIDE RECORDS SUMMARY | 2024-03-31 11:30 | XMS_ITS | Encounter Summary ---
Author Organization [facility] Address [address] [place] [address] Care Team Providers Care Scenic Artist Name Role Phone Elsewhere, Pcp Primary Care Provider Unavailabl e Encounter Details Date Type Department Care Team (Late st Contact Info) Description 01/16/2024 Clinical Communication Department of Orthopedic Surgery in [place], [place] [address] [place] [address] Steve Villarreal M.D. [address] [place] [address] Social History Tobacco Use Types Packs/Day Years Used Date Smoking Tobacco: Never Smokeless Tobacco: Never Alcohol Use Standard Drinks/Week Comments No 0 (1 standard drink = 0.6 oz pur e alcohol) [facility] Utilities Answer Date Recorded In the [...] your living situation today? I have a [facility] place to live 12/31/2023 Sex and Gender Information Value Date Recorded Sex Assigned at Male 03/12/2018 9:14 AM CDT Gender Identity Male 03/12/2018 9:14 AM CDT Sexual Orientation Straight 03/12/2018 9: 14 AM CDT documented as of this encounter Plan of Treatment Not on file documented as of this encounter Visit Diagnoses Not on filedocumented in this encounter Care Teams Scenic Artist Relationship Specialty Start Date End Date Elsewhere, Pcp PCP - General Family Medicine 04/22/18 documented as of this encounter
--- OUTSIDE RECORDS SUMMARY | 2024-03-31 11:30 | XMS_ITS | Encounter Summary ---
Author Organization [facility] Address [address] [place] [address] Care Team Providers Care Seafood Preparer Name Role Phone Elsewhere, Pcp Primary Care Provider Unavailabl e Reason for Visit * Auth/Cert (Routine) Specialty Diagnoses / Procedures Referred By Stacey t Referred To Contact Diagnoses Fusion Ankle Status Post Neuralgia Procedures RAD US PERIPHERAL NERVE INJECTION LEFT Referral ID Status Reason Start Date Expiration Date Visits Re quested Visits Authorized [id number] 1 1 Encounter Details Date Type Department Care Team (Latest Contact Info) Description 01/16/2024 8:11 AM CDT - 01/16/2024 10:08 AM CDT Hospital Encounter Department of Radiology, [facility], in [place], [place] [address] [place] [address] Latanya Malloy PNathan-Lauri. [address] [place] [address] Fusion Ankle Status Post; Neuralgia Discharge Disposition: Home or Self Care Social History Tobacco Use Types Packs/Day Years Used Date Smoking Tobacco: Never Smokeless Tobacco: Never Alcohol Use Standard Drinks/Week Comments No 0 (1 standard drink = 0.6 oz pur e alcohol) [facility] Utilities Answer Date Recorded In the past 12 months has e electric, gas, oil, or water company [...] your living situation today? I have a [facility] place to live 12/31/2023 Sex and Gender [...] Procedure Name Priority Date/Time Associated Diagnosis Comments RAD US LOWER EXTREMITY NERVES LEFT RAD - Routine (most inpatients and all outpatients) 01/16/2024 10:08 AM CDT Fusion Ankle Status Post Neuralgia documented in this encounter Results * US Lower Extremity Nerves Left (01/16/2024 10:08 AM CDT) Anatomical Region Laterality Modality Ultrasound RST LOS, Ultrasound ARZ LOS, Muskulos keletal FLA LOS Ultrasound Impressions 01/16/2024 4:40 PM CDT Targeted sonographic evaluation of the deep peroneal nerve from the ankle to the mid foot/forefoot. There is minimal prominence and hypoechogenicity of the deep peroneal nerve at the level of the second tarsometatarsal joint which correlates with the MR findings, however, there is no focal or reproducible pain with sonographic palpation. Otherwise, the deep peroneal nerve appears normal. No intrinsic or extrinsic mass, no tethering of the nerve. Following discussion with Bambi Greenfield PA-C pager ([phone]) by Dr. Scott the decision was made to defer injection due to the lack of reproducible symptoms. Narrative 01/16/2024 4:40 PM CDT EXAM: US LOWER EXTREMITY NERVES LEFT HISTORY: Sharp intermittent dorsal forefoot pain question deep peroneal nerve getting pinch, tethered, bone spur causing irritation in the mid foot. COMPARISON: MR ankle/left foot dated 01/09/2024. Procedure Note Chela Scott M.D. - 01/16/2024 EXAM: US LOWER EXTREMITY NERVES LEFT HISTORY: Sharp intermittent dorsal forefoot pain question deep peronealnerve getting pinch, tethered, bone spur causing irritation in the midfoot. COMPARISON: MR ankle/left foot dated 01/09/2024. IMPRESSION: Targeted sonographic evaluation of the deep peroneal nerve from the ankleto the mid foot/forefoot. There is minimal prominence and hypoechogenicity of the deep peronealnerve at the level of the second tarsometatarsal joint which correlateswith the MR findings, however, there is no focal or reproducible pain withsonographic palpation. Otherwise, the deep peroneal nerve appears normal. No intrinsic or extrinsic mass, notethering of the nerve. Following discussion with Bambi Greenfield PA-C pager([phone]) by Dr. Scott the decision was made to defer injection due tothe lack of reproducible symptoms. Latanya Malloy P.A.-C. IMG US PROCEDURES documented in this encounter Visit Diagnoses Diagnosis Fusion Ankle Status Post Neuralgia documented in this encounter Care Teams Seafood Preparer Relationship Specialty Start Date End Date Elsewhere, Pcp PCP - General Family Medicine 04/22/18 documented as of this encounter
--- OUTSIDE RECORDS SUMMARY | 2024-03-31 11:30 | XMS_ITS | Encounter Summary ---
Author Organization [facility] Address [address] [place] [id number] Care Team Providers Care Bodywork Therapist Name Role Phone Elsewhere, Pcp Primary Care Provider Unavailabl e Reason for Referral * Outpatient (Routine) - Closed Specialty Diagnoses / Procedures Referred By Stacey maxwell Referred To Contact Diagnoses Neuralgia Procedures US Lower Extremity Nerves Left Latanya Malloy P.A.-C. 200 [place] [address] [facility] Referral ID Status Reason Start Date Expiration Date Visits Re quested Visits Authorized [id number] Closed 01/16/2024 01/15/2025 1 1 Reason for Visit * Outpatient (Routine) - Closed Specialty Diagnoses / Procedures Referred By Stacey maxwell Referred To Contact Diagnoses Neuralgia Procedures US Lower Extremity Nerves Left Latanya Malloy P.A.-C. 200 [place] [address] [facility] Referral ID Status Reason Start Date Expiration Date Visits Re quested Visits Authorized [id number] Closed 01/16/2024 01/15/2025 1 1 Encounter Details Date Type Department Care Team (Latest Contact Info) Description 02/29/2024 8:25 AM CDT - 02/29/2024 11:47 AM CDT Hospital Encounter Department of Radiology, [facility], in [place], [place] [address] [place] [address] Latanya Malloy P.A.-C. 200 [place] [address] Neuralgia Discharge Disposition: Home or Self Care Social History Tobacco Use Types Packs/Day Years Used Date Smoking Tobacco: Never Smokeless Tobacco: Never Alcohol Use Standard Drinks/Week Comments No 0 (1 standard drink = 0.6 oz pur e alcohol) [facility] Utilities Answer Date Recorded In the past 12 months has th e [employer], gas, oil, or water [employer] threatened to shut off services in your [...] your living situation today? I have a [facility] place to live 12/31/2023 Sex and [...] all outpatients) 02/29/2024 10:33 AM CDT Neuralgia documented in this encounter Results * US Lower Extremity Nerves Left (02/29/2024 10:33 AM CDT) Anatomical Region Laterality Modality Ultrasound RST LOS, Ultrasound ARZ LOS, Muskulos keletal FLA LOS Ultrasound Impressions 02/29/2024 10:54 [...] documented in this encounter Visit Diagnoses Diagnosis Neuralgia documented in this encounter Care Teams Bodywork Therapist Relationship Specialty Start Date End Date Elsewhere, Pcp PCP - General Family Medicine 04/22/18 documented as of this encounter
--- OUTSIDE RECORDS SUMMARY | 2024-03-31 11:30 | XMS_ITS | Encounter Summary ---
Author Organization [facility] Address [address] [place] [address] Care Team Providers Care Street Light Inspector Name Role Phone Elsewhere, Pcp Primary Care Provider Unavailabl e Reason for Referral * Outpatient (Routine) - Closed Specialty Diagnoses / Procedures Referred By Stacey maxwell Referred To Contact Diagnoses Neuralgia Procedures RAD US Peripheral Nerve Injection Left Latanya Malloy P.A.-C. 200 [place] [address] [facility] Referral ID Status Reason Start Date Expiration Date Visits Re quested Visits Authorized [id number] Closed 01/16/2024 01/15/2025 1 1 Reason for Visit * Outpatient (Routine) - Closed Specialty Diagnoses / Procedures Referred By Stacey maxwell Referred To Contact Diagnoses Neuralgia Procedures RAD US Peripheral Nerve Injection Left Latanya Malloy P.A.-C. 200 [place] [address] [facility] Referral ID Status Reason Start Date Expiration Date Visits Re quested Visits Authorized [id number] Closed 01/16/2024 01/15/2025 1 1 Encounter Details Date Type Department Care Team (Latest Contact Info) Description 02/29/2024 8:27 AM CDT - 02/29/2024 10:00 AM CDT Hospital Encounter Department of Radiology, [facility], in [place], [place] [address] [place] [address] Latanya Malloy P.A.-C. 200 [place] [address] Neuralgia Discharge Disposition: Home or Self Care Social History Tobacco Use Types Packs/Day Years Used Date Smoking Tobacco: Never Smokeless Tobacco: Never Alcohol Use Standard Drinks/Week Comments No 0 (1 standard drink = 0.6 oz pur e alcohol) [facility] Utilities Answer Date Recorded In the past 12 months has th e [employer], gas, oil, or water [employer] threatened to shut off services in your [...] your living situation today? I have a [facility] place to live 12/31/2023 Sex [...] Priority Date/Time Associated Diagnosis Comments RAD US PERIPHERAL NERVE INJECTION LEFT RAD - Routine (most inpatients and all outpatients) 02/29/2024 10:33 AM CDT Neuralgia documented in this encounter Results * RAD US Peripheral [...] Diagnoses Diagnosis Neuralgia documented in this encounter Administered Medications Inactive Administered Medications - up to 3 most recent administrations Medication Order MAR Action Action Date Dose Rate Site betamethasone acetate & sodium phosphate injection (CELESTONE SOLUSPAN) As needed, Starting on Sun02/29/24 at 1024, Intra-Op Given 02/29/2024 10:24 AM CDT 0.3 mg Left Foot lidocaine 10 mg/mL (1 %) injection (XYLOCAINE) As needed, Starting on Sun02/29/24 at 1021, Intra-Op Given 02/29/2024 10:21 AM CDT 2 mL Left Foot ROPivacaine (PF) 5 mg/mL (0.5 %) injection (NAROPIN) As needed, Starting on Sun02/29/24 at 1024, Intra-Op Given 02/29/2024 10:24 AM CDT 0.5 mL Left Foot documented in this encounter Active and Recently Administered Medications Times are shown in CDT. PRN Medication Order 02/27/2024 02/28/2024 02/29/2024 betamethasone acetate & sodium phosphate injection (CELESTONE SOLUSPAN) (COMPLETED) As needed, Starting on Sun02/29/24 at 1024, Intra-Op 1024 (Given - Provid er: Francois Allan M.D.) lidocaine 10 mg/mL (1 %) injection (XYLOCAINE) (COMPLETED) As needed, Starting on Sun02/29/24 at 1021, Intra-Op 1021 (Given - Provid er: Francois Allan M.D.) ROPivacaine (PF) 5 mg/mL (0.5 %) injection (NAROPIN) (COMPLETED) As needed, Starting on Sun02/29/24 at 1024, Intra-Op 1024 (Given - Provid er: Francois Allan M.D.) documented in this encounter Care Teams Street Light Inspector Relationship Specialty Start Date End Date Elsewhere, Pcp PCP - General Family Medicine 04/22/18 documented as of this encounter
--- OUTSIDE RECORDS SUMMARY | 2024-03-31 11:30 | XMS_ITS | Clinical Summary ---
Author Organization [facility] Address [address] [place] [address] Care Team Providers Care Construction Trades Teacher Name Role Phone Elsewhere, Pcp Primary Care Provider Unavailabl e Source Comments Patient records contain information from all sites at [facility]. For routine questions regarding patient records, call [phone] during business hours, M-F 8:00 AM - 5:00 PM Central Time. Record requests for emergency care only can be directed to [phone] at any time.[facility] Allergies Active Allergy Reactions Criticality Noted Date [...] Overview: Added automatically from request for surgery [id number] Fusion Ankle Status Post 05/13/2018 Arthritis Pyogenic Ankle 04/09/2018 Overview: Added automatically from request for surgery [id number] Hyperlipidemia 03/15/2018 Arthritis Septic 03/15/2018 Arthritis Infectious Ankle And Foot 03/12/2018 Overview: Added automatically from request for surgery [id number] Encounters Date Type Department Care Team Description 02/29/2024 2:30 PM CDT Office Visit Department of Orthopedic Surgery in [address] [phone] Steve Villarreal M.D. Fusion Ankle Status Post (Primary Dx); Pain Joint Foot Left; Neuralgia 02/29/2024 11:48 AM CDT - 02/29/2024 11:59 PM CDT Hospital Encounter Department of Neurology in [address] [phone] Latanya Malloy, P.A.-CWest Fusion Ankle Status Post; Neuralgia Discharge Disposition: Home or Self Care 02/29/2024 8:27 AM CDT - 02/29/2024 10:00 AM CDT Hospital Encounter Department of Radiology, [address] [phone] Latanya Malloy P.A.-C. Neuralgia Discharge Disposition: Home or Self Care 02/29/2024 8:25 AM CDT - 02/29/2024 11:47 AM CDT Hospital Encounter Department of Radiology, [address] [phone] Latanya Malloy, P.A.-C. Neuralgia Discharge Disposition: Home or Self Care 01/16/2024 8:11 AM CDT - 01/16/2024 10:08 AM CDT Hospital Encounter Department of Radiology, [facility], [address] [phone] Latanya Malloy, P.A.-C. Fusion Ankle Status Post; Neuralgia Discharge Disposition: Home or Self Care 01/16/2024 Orders Only Department of Orthopedic Surgery in [place], [place] [address] [place] [phone] Latanya Malloy P.A.-C. Neuralgia (Primary Dx) 01/16/2024 Clinical Communication Department of Orthopedic Surgery in [place], [place] [address] [place] [phone] Steve Villarreal M.D. 01/15/2024 2:45 PM CDT Clinical Communication Virtual Review in [place], [place] [address] [place] [address] Pre-visit Intake 01/09/2024 5:53 PM CDT - 01/09/2024 11:59 PM CDT Hospital Encounter Department of Radiology, [facility] in [place], [place] [address] [place] [phone] Latanya Malloy P.A.-C. Fusion Ankle Status Post; Neuralgia Discharge Disposition: Home or Self Care 01/09/2024 5:52 PM CDT Hospital Encounter Department of Radiology, [facility], in [place], [place] [address] [place] [phone] Latanya Malloy P.A.-C. Fusion Ankle Status Post; Neuralgia Discharge Disposition: Home or Self Care 01/07/2024 10:30 AM CDT Comprehensive Visit Department of Orthopedic Surgery in [place], [place] [address] [place] [phone] Steve Villarreal M.D. Fusion Ankle Status Post (Primary Dx); Pain Joint Foot Left; Neuralgia 01/07/2024 8:50 AM CDT - 01/07/2024 11:59 PM CDT Hospital Encounter Department of Radiology, [facility], in [place], [place] [address] [place] [phone] Latanya Malloy P.A.-C. Pain Joint Foot Left Discharge Disposition: Home or Self Care 01/07/2024 Clinical Communication Department of Orthopedic Surgery in [place], [place] [address] [place] [phone] Steve Villarreal M.D. Question from Last 3 Months Social History Tobacco Use Types Packs/Day Years Used Date Smoking Tobacco: Never Smokeless Tobacco: Never Alcohol Use Standard Drinks/Week Comments No 0 (1 standard drink = 0.6 oz pur e alcohol) [facility] Utilities Answer Date Recorded In [...] your living situation today? I have a [facility] place to live 12/31/2023 Sex and [...] 05/12/2019 1:39 PM CDT Plan of Treatment Health Maintenance Due Date Last Done Comments CT Colonography 1966 Cologuard 1966 FIT 1966 Fasting Glucose for Diabetes Screening 1966 HIV Screening 1966 Hepatitis C Screening 1966 Lipid (Cholesterol) Screening 1966 Hepatitis B Vaccines (1 of 3 - 19+ 3-dose series) 1985 COVID-19 Vaccine (4 - 2022-2 4 season) 2023 10/14/2021, 01/25/2021, 12/31/2020 Depression Screening (Annual PHQ-2) 09/17/2023 Influenza Vaccine (#1) 2024 Colonoscopy 01/26/2027 01/26/2017 Colorectal Cancer Screening 01/26/2027 DTaP,Tdap,and Td Vaccines (2 - Td or Tdap) 03/19/2028 03/19/2018 Zoster Vaccines Completed 04/29/2020, 11/03/2019 Pneumococcal vaccine (0-64 years) Aged Out No longer eligible b ased on patient's age to complete this topic Medical Devices Explanted Type Area Supervisor Concrete Block Plant Device Identifier Shelf Expiration Date Model / Serial / Lot Cmnt Bn Hi Visc Pmma 20 - [id number] Implanted:Qty: 1 on 03/15/2018 by Steve Villarreal M.D. at [facility] Pradhan/Bereket Explanted:Qty: 1 [facility] Left: Ankle Marquis 02/15/2020 [id number] / / [id number] Description:Left ankle antib iotic beads Ranco Cubes 1 Hole With Post Implanted:Qty: 1 on 05/13/2018 at [facility] Explanted:Qty: 1 on 08/21/2018 by Steve Villarreal M.D. at [facility] Hardware e.g. pins/screws /rods [employer] [id number] / / Rancho Cube 3 Hole Implanted:Qty: 3 on 05/13/2018 at [facility] Explanted:Qty: 3 on 08/21/2018 by Steve Villarreal M.D. at [facility] Hardware e.g. pins/screws /rods [employer] [id number] / / Rancho Cubes 4 Hole Implanted:Qty: 1 on 05/13/2018 at [facility] Explanted:Qty: 1 on 08/21/2018 by Steve Villarreal M.D. at [facility] Hardware e.g. pins/screws /rods [employer] [id number] / / Fast Fx Struts Medium, 143-205mm Implanted:Qty: 6 on 05/13/2018 at [facility] Explanted:Qty: 6 on 08/21/2018 by Steve Villarreal M.D. at [facility] Hardware e.g. pins/screws /rods [employer] [id number] / / Centering Sleeve 6mm, For Use With [id number] And [id number] Implanted:Qty: 4 on 05/13/2018 at [facility] Explanted:Qty: 4 on 08/21/2018 by Steve Villarreal M.D. at [facility] Hardware e.g. pins/screws /rods [employer] [id number] / / Connection Bolts Implanted:Qty: 3 on 05/13/2018 at [facility] Explanted:Qty: 3 on 08/21/2018 by Steve Villarreal M.D. at [facility] Hardware e.g. pins/screws /rods [employer] [id number] / / Connection Bolts, 10mm Implanted:Qty: 1 on 05/13/2018 at [facility] Explanted:Qty: 1 on 08/21/2018 by Steve Villarreal M.D. at [facility] Hardware e.g. pins/screws /rods [employer] [id number] / / Connection Bolts, 16mm Implanted:Qty: 4 on 05/13/2018 at [facility] Explanted:Qty: 4 on 08/21/2018 by Steve Villarreal M.D. at [facility] Hardware e.g. pins/screws /rods [employer] [id number] / / Ilizarov Wires (Guinda) ([facility]) Implanted:Qty: 6 on 05/13/2018 at [facility] Explanted:Qty: 6 on 08/21/2018 by Steve Villarreal M.D. at [facility] Hardware e.g. pins/screws /rods [employer] [id number] / / Half Rings, Aluminum, 155mm Implanted:Qty: 1 on 05/13/2018 at [facility] Explanted:Qty: 1 on 08/21/2018 by Steve Villarreal M.D. at [facility] Hardware e.g. pins/screws /rods [employer] [id number] / / [id number] Rouse Coated Half Pin Implanted:Qty: 4 on 05/13/2018 at [facility] Explanted:Qty: 4 on 08/21/2018 by Steve Villarreal M.D. at [facility] Hardware e.g. pins/screws /rods [employer] [id number] / / Foot Rings, Aluminum, 155mm Long Implanted:Qty: 1 on 05/13/2018 at [facility] Explanted:Qty: 1 on 08/21/2018 by Steve Villarreal M.D. at [facility] Hardware e.g. pins/screws /rods [employer] [id number] / / Id Bands, Fast Fx Strut Kit Implanted:Qty: 2 on 05/13/2018 at [facility] Explanted:Qty: 2 on 08/21/2018 by Steve Villarreal M.D. at [facility] Hardware e.g. pins/screws /rods [employer] [id number] / / 10mm Nuts Implanted:Qty: 24 on 05/13/2018 at [facility] Explanted:Qty: 24 on 08/21/2018 by Steve Villarreal M.D. at [facility] Hardware e.g. pins/screws /rods [employer] [id number] / / Wire Fixation Bolts, Comination Cannulated Slotted Implanted:Qty: 3 on 05/13/2018 at [facility] Explanted:Qty: 3 on 08/21/2018 by Steve Villarreal M.D. at [facility] Hardware e.g. pins/screws /rods [employer] [id number] / / Bahamian Wire Fixation [place] Implanted:Qty: 12 on 05/13/2018 at [facility] Explanted:Qty: 12 on 08/21/2018 by Steve Villarreal M.D. at [facility] Hardware e.g. pins/screws /rods [employer] [id number] / / Pin Fix Stn Troc Pt Thrd - [id number] Implanted:Qty: 2 on 05/13/2018 at [facility] Explanted:Qty: 2 on 08/21/2018 by Steve Villarreal M.D. at [facility] Hardware e.g. pins/screws /rods Marquis [id number] / / 35mm Angled Pin Connectors Implanted:Qty: 1 on 05/13/2018 at [facility] Explanted:Qty: 1 on 08/21/2018 by Steve Villarreal M.D. at [facility] Hardware e.g. pins/screws /rods [employer] [id number] / / Slotted Washer 4.0mm Thick Implanted:Qty: 11 on 05/13/2018 at [facility] Explanted:Qty: 11 on 08/21/2018 by Steve Villarreal M.D. at [facility] Hardware e.g. pins/screws /rods [employer] [id number] / / Extended Connectors 50mm Implanted:Qty: 11 on 05/13/2018 at [facility] Explanted:Qty: 11 on 08/21/2018 by Steve Villarreal M.D. at [facility] Hardware e.g. pins/screws /rods [employer] [id number] / / Half Pin Caps 6mm, [place] Implanted:Qty: 12 on 05/13/2018 at [facility] Explanted:Qty: 12 on 08/21/2018 by Steve Villarreal M.D. at [facility] Hardware e.g. pins/screws /rods [employer] [id number] / / 155mm, 7 Hole Master Tab Implanted:Qty: 1 on 05/13/2018 at [facility] Explanted:Qty: 1 on 08/21/2018 by Steve Villarreal M.D. at [facility] Hardware e.g. pins/screws /rods [employer] [id number] / / Set Screw Implanted:Qty: 3 on 05/13/2018 at [facility] Explanted:Qty: 3 on 08/21/2018 by Steve Villarreal M.D. at [facility] Hardware e.g. pins/screws /rods [employer] [id number] / / Procedures Procedure Name Priority Date/Time [...] ? Final Report Study Number: 1 EMG Conservation Specialist: Brain Thorne 127 or [phone] Referred by: LATANYA MALLOY ([id number])) Referred for: Neuralgia Referral Code: RX: 001 [...] of radicular pain. N. Seven (127 or [phone])/SMB NERVE CONDUCTIONS ??Record Rep ?? Normal ??Normal [...] Electromyography Final Report Study Number: 1 EMG Conservation Specialist: Brain Thorne 127 or [phone] Referred by: LATANYA MALLOY ([phone])) Referred for: Neuralgia Referral Code: RX: 001 [...] of radicular pain. N. Mati (127 or [phone])/SMB NERVE CONDUCTIONS Record Rep Normal Normal Distal [...] M.D. at 02/29/2024 1:01:58 PM CDT Latanya N Gama P.A.-C. NEUROLOGY ORDERAB LES [facility] * [...] body of the report. Latanya Malloy P.A.-C. IMG MRI PROCEDURE S * DX Foot Ankle [...] Advance Directives For more information, please contact: [phone] * Full Code (Latest Code Status on File) Date Activated Date Inactivated Comments 03/15/2018 5:08 PM 03/18/2018 6:00 PM Question Answer Comments Full Code: Not Discussed Due to: Patient not available Care Teams Construction Trades Teacher Relationship Specialty Start Date End Date Elsewhere, Pcp PCP - General Family Medicine 04/22/18
--- OUTSIDE RECORDS SUMMARY | 2024-03-31 11:30 | XMS_ITS | Encounter Summary ---
Author Organization [facility] Address [address] [place] [address] Care Team Providers Care Voip Engineer Name Role Phone Elsewhere, Pcp Primary Care Provider Unavailabl e Reason for Visit * MRI/CAT/PET Scan (Routine) - Closed Specialty Diagnoses / Procedures Referred By Stacey t Referred To Contact Radiology Diagnoses Fusion Ankle Status Post Neuralgia Procedures MR Ankle Left without IV Contrast MR Ankle Right without IV Contrast Latanya Malloy P.A.-CWest [address] [place] [address] [facility] Referral ID Status Reason Start Date Expiration Date Visits Re quested Visits Authorized [id number] Closed 01/07/2024 01/06/2025 1 1 Encounter Details Date Type Department Care Team (Latest Contact Info) Description 01/09/2024 5:52 PM CDT Hospital Encounter Department of Radiology, [facility], in [place], [place] [address] [place] [address] Latanya Malloy, LanAWest-CWest [address] [place] [phone] Fusion Ankle Status Post; Neuralgia Discharge Disposition: Home or Self Care Social History Tobacco Use Types Packs/Day Years Used Date Smoking Tobacco: Never Smokeless Tobacco: Never Alcohol Use Standard Drinks/Week Comments No 0 (1 standard drink = 0.6 oz pur e alcohol) [facility] Utilities Answer Date Recorded In [...] your living situation today? I have a [facility] place to live 12/31/2023 Sex and [...] mcg/actuation nasal spray PRN seasonal allergies 10/12/2021 loratadine-pseudoephed rine (CLARITIN-D 24-hour) 10-240 mg per 24 hr tablet Take 1 tablet by mouth daily. 01/15/2024 documented as of this encounter Plan of Treatment Not on file documented as of this encounter Procedures Procedure Name Priority Date/Time Associated Diagnosis Comments MR ANKLE LEFT WITHOUT IV CONTRAST RAD - Routine (most inpatients and all outpatients) 01/09/2024 7:04 PM CDT Fusion Ankle Status Post Neuralgia documented in this encounter Results * MR Ankle Left without IV Contrast [...] Latanya Malloy P.A.-C. IMG MRI PROCEDURE S documented in this encounter Visit Diagnoses Diagnosis Fusion Ankle Status Post Neuralgia documented in this encounter Care Teams Voip Engineer Relationship Specialty Start Date End Date Elsewhere, Pcp PCP - General Family Medicine 04/22/18 documented as of this encounter
--- OUTSIDE RECORDS SUMMARY | 2024-03-31 11:30 | XMS_ITS | Encounter Summary ---
Author Organization [facility] Address [address] [place] [address] Care Team Providers Care Manager Payroll Name Role Phone Elsewhere, Pcp Primary Care Provider Unavailabl e Reason for Visit * MRI/CAT/PET Scan (Routine) - Closed Specialty Diagnoses / Procedures Referred By Contirma t Referred To Contact Radiology Diagnoses Fusion Ankle Status Post Neuralgia Procedures MR Foot Right without IV Contrast Latanya Malloy, P.A.-CWest [address] [place] [address] [facility] Referral ID Status Reason Start Date Expiration Date Visits Re quested Visits Authorized [id number] Closed 01/07/2024 01/06/2025 1 1 Encounter Details Date Type Department Care Team (Latest Contact Info) Description 01/09/2024 5:53 PM CDT - 01/09/2024 11:59 PM CDT Hospital Encounter Department of Radiology, [facility], in [place], [place] [address] [place] [address] Latanya Malloy, P.A.-C. [address] [place] [phone] Fusion Ankle Status Post; Neuralgia Discharge Disposition: Home or Self Care Social History Tobacco Use Types Packs/Day Years Used Date Smoking Tobacco: Never Smokeless Tobacco: Never Alcohol Use Standard Drinks/Week Comments No 0 (1 standard drink = 0.6 oz pur e alcohol) [facility] Utilities Answer Date Recorded In the past [...] your living situation today? I have a [facility] place to live 12/31/2023 Sex and Gender [...] Neuralgia documented in this encounter Care Teams Manager Payroll Relationship Specialty Start Date End Date Elsewhere, Pcp PCP - General Family Medicine 04/22/18 documented as of this encounter
--- OUTSIDE RECORDS SUMMARY | 2024-03-31 11:30 | XMS_ITS ---
Author Organization [facility] Address [address] [place] [address] Care Team Providers Care Paint Mixer Hand Name Role Phone Unavailable Unavailable Unavailable Surgery Details Not on file Complications Check Surgery Details section. Procedure Estimated Blood Loss Check Surgery Details section. Procedure Findings Check Surgery Details section. Procedure Specimens Taken Check Surgery Details section.
--- OUTSIDE RECORDS SUMMARY | 2024-03-31 11:31 | XMS_ITS | Encounter Summary ---
Author Organization [facility] Address [address] [place] [address] Care Team Providers Care Pawn Broker Name Role Phone Elsewhere, Pcp Primary Care Provider Unavailabl e Reason for Referral * Outpatient (Routine) - Closed Specialty Diagnoses / Procedures Referred By Stacey t Referred To Contact Diagnoses Pain Joint Foot Left Procedures DX Foot Ankle Left 3+ Views Latanya Malloy P.A.-C. [address] [place] [phone] [facility] Referral ID Status Reason Start Date Expiration Date Visits Re quested Visits Authorized [id number] Closed 12/25/2023 12/24/2024 1 1 Reason for Visit * Reason Onset Date Comments Pre-visit Testing Orders 12/25/2023 Encounter Details Date Type Department Care Team (Latest Contact Info) Description 12/25/2023 Clinical Communication Department of Orthopedic Surgery in [place], [place] [address] [place] [phone] Steve Villarreal M.D. [address] [place] [phone] Pre-visit Testing Orders Social History Tobacco Use Types Packs/Day Years Used Date Smoking Tobacco: Never Smokeless Tobacco: Never Alcohol Use Standard Drinks/Week Comments No 0 (1 standard drink = 0.6 oz pur e alcohol) Nutrition Answer Date Recorded Nutrition: EVOO Fat Source Unknown 11/22 Nutrition: Servings of Fruits/Vegetables per Day Not on file 11/22/2020 Dental Answer Date Recorded Dental: Regular Dentist Unknown 11/24/19 21 Sex and Gender Information Value Date Recorded Sex Assigned at Male 03/12/2018 9:14 AM CDT Gender Identity Male 03/12/2018 9:14 AM CDT Sexual Orientation Straight 03/12/2018 9: 14 AM CDT documented as of this encounter Plan of Treatment Not on file documented as of this encounter Results * DX Foot Ankle Left 3+ Views [...] relative to the right. Vascular calcifications. Latanya LEAVITTG DIAGNOSTIC IM AGING PROCEDURES documented in this encounter Visit Diagnoses Diagnosis Pain Joint Foot Left- Primary Pain Joint Foot Left documented in this encounter Care Teams Pawn Broker Relationship Specialty Start Date End Date Elsewhere, Pcp PCP - General Family Medicine 04/22/18 documented as of this encounter
--- OUTSIDE RECORDS SUMMARY | 2024-03-31 11:31 | XMS_ITS | Encounter Summary ---
Author Organization [facility] Address [address] [place] [address] Care Team Providers Care Structural Manager Name Role Phone Elsewhere, Pcp Primary Care Provider Unavailabl e Encounter Details Date Type Department Care Team (Late st Contact Info) Description 12/25/2023 Orders Only Department of Orthopedic Surgery in [place], [place] [address] [place] [phone] [facility], Provider Pain Foot Left Social History Tobacco Use Types Packs/Day Years [...] as of this encounter Visit Diagnoses Diagnosis Pain Foot Left documented in this encounter Care Teams Structural Manager Relationship Specialty Start Date End Date Elsewhere, Pcp PCP - General Family Medicine 04/22/18 documented as of this encounter
--- OUTSIDE RECORDS SUMMARY | 2024-03-31 11:31 | XMS_ITS | Encounter Summary ---
Author Organization [facility] Address [address] [place] [address] Care Team Providers Care Writing Tutor Name Role Phone Elsewhere, Pcp Primary Care Provider Unavailabl e Reason for Visit * Reason Onset Date Comments Question 01/07/2024 Encounter Details Date Type Department Care Team ([facility] st Contact Info) Description 01/07/2024 Clinical Communication Department of Orthopedic Surgery in [place], [place] [address] [place] [phone] Steve Villarreal M.D. [address] [place] [phone] Question Social History Tobacco Use Types Packs/Day Years Used Date Smoking Tobacco: Never Smokeless Tobacco: Never Alcohol Use Standard Drinks/Week Comments No 0 (1 standard drink = 0.6 oz pur e alcohol) [facility] Utilities Answer Date Recorded In the past 12 months has [facility] [employer], gas, oil, or water [employer] threatened to shut off services in your [...] your living situation today? I have a [facility] place to live 12/31/2023 Sex and Gender Information Value Date Recorded Sex Assigned at Male 03/12/2018 9:14 AM CDT Gender Identity Male 03/12/2018 9:14 AM CDT Sexual Orientation Straight 03/12/2018 9: 14 AM CDT documented as of this encounter Plan of Treatment Not on file documented as of this encounter Visit Diagnoses Not on filedocumented in this encounter Care Teams Writing Tutor Relationship Specialty Start Date End Date Elsewhere, Pcp PCP - General Family Medicine 04/22/18 documented as of this encounter
--- OUTSIDE RECORDS SUMMARY | 2024-03-31 11:31 | XMS_ITS | Clinical Summary ---
Author Organization [employer] [facility] [employer] Address [place], [place] [address] Care Team Providers Care Aircraft Communicator Name Role Phone [facility] Primary Care Provider Unavailabl e Allergies Active Allergy Reactions Criticality Noted Date Comments Ceftriaxone Hives High 05/10/2018 hives on head on 6th week of infusion Oxycodone Headache Medium 05/10/2018 Medications Medication Sig Dispensed Refills Start Date End Date Status simvastatin (ZOCOR) 40 mg tablet Take 40 mg by mouth at bedtime. 02/19/2022 Active Nasacort 55 mcg nasal spray PRN seasonal allergies 10/12/2021 Active cetirizine (ZyrTEC) 10 mg tablet Take 1 Tablet (10 mg) by mouth once daily. 05/09/2022 Active omeprazole (PRILOSEC) 40 mg Delayed-Release capsuleIndications:E sophageal dysphagia Take 1 Capsule (40 mg) by mouth once daily. 30 Capsule 11 05/12/2022 Active famotidine (PEPCID) 20 mg tabletIndications:Dy sphagia, unspecified type,Eosinophilic esophagitis Take 1 Tablet (20 mg) by mouth two times daily. 180 Tablet 3 08/02/2022 Active Active Problems Problem Noted Date Diagnosed Date Eosinophilic esophagitis 05/16/2022 Overview: EGD 04/2022 EoE Esophageal dysphagia 05/11/2022 Arthrodesis status 05/13/2018 Hyperlipidemia 03/15/2018 Sensorineural hearing loss, asymmetrical 012 Resolved Problems Problem Noted Date Diagnosed Date Resolved Date Arthritis, septic 03/15/2018 05/11/2022 Pyogenic arthritis of ankle 03/12/2018 05/11/2022 Overview: Added automatically from request for surgery [id number] Added automatically from request for surgery [id number] Family History Medical History Relation Name Comments Dementia Father Aneurysm Mother Relation Name Status Comments Brother 1 Alive Brother 2 Alive Brother 3 Alive Brother 4 Father Alive Mother Sister Alive Social History Tobacco Use Types Packs/Day Years Used Date Smoking Tobacco: Never Smokeless Tobacco: Never Tobacco Cessation:Counseling Given: Yes Alcohol Use Standard Drinks/Week Comments Yes 5 (1 standard drink = 0.6 oz pur e alcohol) Social Connections Answer Date Recorded Frequency of Communication with Friends and Fami ly Not on file 05/09/2022 Financial Resource Strain Answer Date R ecorded Difficulty of Paying Living Expenses Not on file 09/17/2021 Difficulty of Paying Living Expenses Not on file 09/17/2021 Sex and Gender Information Value Date Recorded Sex Assigned at Not on file Gender Identity Not on file Sexual Orientation Not on file Obstetrics History Last Filed Vital Signs Vital Sign Reading Time Taken Comments Blood Pressure 121/80 08/02/2022 1:41 PM WELFARE SUPERVISOR Pulse 76 08/02/2022 1:41 PM WELFARE SUPERVISOR Temperature 36.2 ??C (97.1 ??F) 02/26/2020 2:33 PM CD T Respiratory Rate - - Oxygen Saturation 95% 08/02/2022 1:41 PM WELFARE SUPERVISOR Inhaled Oxygen Concentration - - Weight 104.9 kg (231 lb 3.2 oz) 08/02/2022 1:41 PM WELFARE SUPERVISOR Height 185.4 cm (6' 1) 05/09/2022 10:1 7 AM CDT Body Mass Index 30.5 05/09/2022 10:17 AM CDT Plan of Treatment Health Maintenance Due Date Last Done Comments Tdap 1977 Depression screening for age 12+ 1978 HIV for age 15-65 1981 Hepatitis C screening for age 18-79 1984 Tetanus booster 1986 Lipids for age 45-75 2011 Zoster (shingles) series for age 50+ (1 of 2) 2016 BMI (ht and wt on same day) for age 18+ 05/09/2023 05/09/2022 COVID-19 vaccine series ( season) 2023 10/14/2021, 01/25/2021, 12/31/2020 Influenza for age 50-64 05/18/2024 Colonoscopy through age 75 01/26/202701/26, 01/15/2017 ([facility]) Pneumococcal series for age 6-64 Aged Out No longer eligible based on patient's age to complete this topic Procedures Procedure Name Priority Date/Time Associated Diagnosis Comments SCAN-COLONOSCOPY 01/26/2017 12:0 0 AM CDT from Last 3 Months or Most Recently Relevant to Health Maintenance Results * SCAN-COLONOSCOPY (01/26/2017 12:00 AM CDT) Scanner OTHER from Last 3 Months or Most Recently Relevant to Health Maintenance Care Teams Aircraft Communicator Relationship Specialty Start Date End Date [place] PCP - General 12/24/17
--- OUTSIDE RECORDS SUMMARY | 2024-03-31 11:31 | XMS_ITS | Encounter Summary ---
Author Organization [facility] Address [address] [place] [id number] Care Team Providers Care Certified Addiction Counselor Name Role Phone Elsewhere, Pcp Primary Care Provider Unavailabl e Encounter Details Date Type Department Care Team (Late st Contact Info) Description 12/25/2023 Orders Only Department of Orthopedic Surgery in [place], [place] [address] [place] [address] Latanya Malloy P.AWest-CWest [address] [place] [address] Social History Tobacco Use Types Packs/Day Years [...] on filedocumented in this encounter Care Teams Certified Addiction Counselor Relationship Specialty Start Date End Date Elsewhere, Pcp PCP - General Family Medicine 04/22/18 documented as of this encounter
--- OUTSIDE RECORDS SUMMARY | 2024-03-31 11:31 | XMS_ITS | Encounter Summary ---
Author Organization [facility] Address [address] [place] [address] Care Team Providers Care Gis Administrator Name Role Phone Elsewhere, Pcp Primary Care Provider Unavailabl e Reason for Referral * Outpatient (Routine) - Closed Specialty Diagnoses / Procedures Referred By Stacey maxwell Referred To Contact Diagnoses Pain Joint Foot Left Procedures DX Foot Ankle Left 3+ Views Latanya Malloy P.A.-[place] [address] [place] [address] [facility] [employer] Referral ID Status Reason Start Date Expiration Date Visits Re quested Visits Authorized [id number] Closed 12/25/2023 12/24/2024 1 1 Reason for Visit * Outpatient (Routine) - Closed Specialty Diagnoses / Procedures Referred By Stacey maxwell Referred To Contact Diagnoses Pain Joint Foot Left Procedures DX Foot Ankle Left 3+ Views Latanya Malloy P.A.-[place] [address] [place] [address] [employer] Referral ID Status Reason Start Date Expiration Date Visits Re quested Visits Authorized [id number] Closed 12/25/2023 12/24/2024 1 1 Encounter Details Date Type Department Care Team (Latest Contact Info) Description 01/07/2024 8:50 AM CDT - 01/07/2024 11:59 PM CDT Hospital Encounter Department of Radiology, [facility], in [place], [place] [address] [place] [phone] Latanya Malloy P.A.-C. [address] [place] [address] Pain Joint Foot Left Discharge Disposition: Home or Self Care Social History Tobacco Use Types Packs/Day Years Used Date Smoking Tobacco: Never Smokeless Tobacco: Never Alcohol Use Standard Drinks/Week Comments No 0 (1 standard drink = 0.6 oz pur e alcohol) [facility] Utilities Answer Date Recorded In the past 12 months has e [employer], gas, oil, or water [employer] threatened to shut off services in your [...] your living situation today? I have a [facility] place to live 12/31/2023 Sex and Gender [...] Procedure Name Priority Date/Time Associated Diagnosis Comments DX FOOT ANKLE LEFT 3+ VIEWS RAD - Routine (most inpatients and all outpatients) 01/07/2024 9:41 AM CDT Pain Joint Foot Left documented in this encounter Results * DX Foot Ankle [...] Malloy P.A.-C. IMG DIAGNOSTIC IM AGING PROCEDURES documented in this encounter Visit Diagnoses Diagnosis Pain Joint Foot Left documented in this encounter Care Teams Gis Administrator Relationship Specialty Start Date End Date Elsewhere, Pcp PCP - General Family Medicine 04/22/18 documented as of this encounter
--- OUTSIDE RECORDS SUMMARY | 2024-03-31 11:31 | XMS_ITS | Encounter Summary ---
Author Organization [facility] Address [address] [place] [address] Care Team Providers Care Therapeutic Specialist Name Role Phone Elsewhere, Pcp Primary Care Provider Unavailabl e Reason for Visit * Reason Onset Date Comments Pre-scheduling Questionnaire 12/25/2023 Encounter Details Date Type Department Care Team (Latest Contact Info) Description 12/25/2023 Clinical Communication Department of Orthopedic Surgery in [place], [place] [address] [place] [address] Prescheduling, Provider Pre-scheduling Questionnaire Social History Tobacco Use Types Packs/Day Years [...] on filedocumented in this encounter Care Teams Therapeutic Specialist Relationship Specialty Start Date End Date Elsewhere, Pcp PCP - General Family Medicine 04/22/18 documented as of this encounter
--- OUTSIDE RECORDS SUMMARY | 2024-03-31 11:31 | XMS_ITS | Encounter Summary ---
Author Organization [facility] Address [address] [place] [address] Care Team Providers Care Consular Officer Name Role Phone Elsewhere, Pcp Primary Care Provider Unavailabl e Reason for Referral * Outpatient (Routine) - Closed Specialty Diagnoses / Procedures Referred By Stacey maxwell Referred To Contact Diagnoses Fusion Ankle Status Post Neuralgia Procedures US Lower Extremity Nerves Left RAD US Peripheral Nerve Injection Left Alyssia Malloy P.A.-C. [address] [place] [phone] [facility] Referral ID Status Reason Start Date Expiration Date Visits Re quested Visits Authorized [id number] Closed 01/07/2024 01/06/2025 1 1 * Outpatient (Routine) - Closed Specialty Diagnoses / Procedures Referred By Stacey maxwell Referred To Contact Orthopedic Surgery Alyssia Malloy P.A.-C. [address] [place] [phone] Steve Villarreal M.D. [address] [place] [phone] Referral ID Status Reason Start Date Expiration Date Visits Re quested Visits Authorized [id number] Closed 01/07/2024 07/08/2025 1 1 * MRI/CAT/PET Scan (Routine) - Closed Specialty Diagnoses / Procedures Referred By Stacey maxwell Referred To Contact Radiology Diagnoses Fusion Ankle Status Post Neuralgia Procedures MR Foot Right without IV Contrast Alyssia Malloy P.A.-C. [address] [place] [phone] [facility] Referral ID Status Reason Start Date Expiration Date Visits Re quested Visits Authorized [id number] Closed 01/07/2024 01/06/2025 1 1 * Outpatient (Routine) - Closed Specialty Diagnoses / Procedures Referred By Stacey maxwell Referred To Contact Diagnoses Fusion Ankle Status Post Neuralgia Procedures EMG [place]lyssia [place] [address] [facility] Referral ID Status Reason Start Date Expiration Date Visits Re quested Visits Authorized [id number] Closed 01/07/2024 01/06/2025 1 1 Reason for Visit * Appointment Request (Routine) - Closed Specialty Diagnoses / Procedures Referred By Stacey maxwell Referred To Contact Orthopedic Surgery Diagnoses Pain Foot Left Referral ID Status Reason Start Date Expiration Date Visits Re quested Visits Authorized [id number] Closed 12/25/2023 12/24/2024 1 1 Encounter Details Date Type Department Care Team (Latest Contact Info) Description 01/07/2024 10:30 AM CDT Comprehensive Visit Department of Orthopedic Surgery in [place], [place] 200 [place] [phone] Steve Villarreal M.D. [address] [place] [phone] Fusion Ankle Status Post (Primary Dx); Pain Joint Foot Left; Neuralgia Social History Tobacco Use Types Packs/Day Years Used Date Smoking Tobacco: Never Smokeless Tobacco: Never Alcohol Use Standard Drinks/Week Comments No 0 (1 standard drink = 0.6 oz pur e alcohol) [facility] Utilities Answer Date Recorded In the [...] your living situation today? [facility] 12/31/2023 Sex and Gender Information Value Date Recorded Sex Assigned at Male 03/12/2018 9:14 AM CDT Gender Identity Male 03/12/2018 9:14 AM CDT Sexual Orientation Straight 03/12/2018 9: 14 AM CDT documented as of this encounter Consult Notes * Steve Villarreal M.D. - 01/07/2024 10:30 AM CDT REFERRAL: No ref. provider found CHIEF COMPLAINT: 1. Left dorsal foot periodic sharp pains with proximal radiation 2. Left forefoot pain HISTORY OF PRESENT ILLNESS: Steve Sosa is a 58 y.o. male with a history of left ankle septic arthritis. He underwent left ankle hardware removal with irrigation and debridement. He underwent left ankle arthrodesis with the useof a Nayeli spatial frame on May 03, 2018. The frame was later removed on August 21 2018. He healed well. He has been infection free. For the most part, he does not have significant ankle pain.His current chief complaint is a sharp stabbing pain that comes on abruptly. This starts at the dorsal midfoot as he points and then radiates proximally up to the knee. This comes and goes abruptly. He feels like this is like a stabbing sharp, hot knife. He states that early on, these episodes would happen maybe once or twice a month. Now, this will happen 2-3 times per week. He does not noticed this during activity. In fact, he does not notice significant pain with activity in the ankle. Thesesharp, stabbing pains will come on abruptly about 2-3 times per week, at rest. These pains go away abruptly as well. In addition, with increased activity, he will get some aching at the forefoot diffusely. This pain is diffuse in a stocking-glove pattern at the forefoot. This will start out with some start-up pain when he first gets to walking and then will ease up after a few steps. Then, with increased walking and activity, the forefoot aching will increase. In addition, the patient has diffuse altered sensation at the left lower extremity from the knee and distally. This is less of a concern for him. Initially, the patient was thinking about a below-knee amputation as the best way to solve his current left pain. Past Medical History: Diagnosis Date Hyperlipidemia Past Surgical History: Procedure Laterality Date ARTHRODESIS OF ANKLE Left 05/13/2018 Procedure: antibiotic cement spacer removal, ankle fusion with TSF; Surgeon: Steve Villarreal M.D.; Location: [facility] OR DEBRIDEMENT AND IRRIGATION ANKLE Left 03/15/2018 Procedure: DEBRIDEMENT AND IRRIGATION ANKLE.; Surgeon: Steve Villarreal M.D.; Location: [facility] 15 OR EXTERNAL FIXATION REMOVAL ANKLE Left 08/21/2018 Procedure: REMOVAL EXTERNAL FIXATION ANKLE, proceed as indicated.; Surgeon: Steve Villarreal M.D.; Location: [facility] [place] [facility] OR Current Outpatient Medications Medication Sig Dispense Refill acetaminophen (TYLENOL) 500 mg tablet Take 2 tablets (1,000 mg total) by mouth every 6 (six) hours.(Patient taking differently: Take 1,000 mg by mouth every 6 (six) hours as needed. ) 100 tablet 1 loratadine-pseudoephedrine (CLARITIN-D 24-hour) 10-240 mg per 24 hr tablet Take 1 tablet by mouth daily. simvastatin (ZOCOR) 40 mg tablet Take 40 mg by mouth at bedtime. Social History Socioeconomic History Marital status: Spouse name: Not on file Number of children: Not on file Years of education: Not on file Highest education level: Not on file Occupational History Not on file Tobacco Use Smoking status: Never Smokeless tobacco: Never Substance and Sexual Activity Alcohol use: No Drug use: No Sexual activity: Not on file Other Topics Concern Not on file Social History Narrative Not on file Social Determinants of Health Food Insecurity: No Food Insecurity (12/31/2023) Hunger Vital Sign Worried About Running Out of Food in the Last Year: Never true Ran Out of Food in the Last Year: Never true Transportation Needs: No Transportation Needs (12/31/2023) PRAPARE - Transportation Lack of Transportation (Medical): No Lack of Transportation (Non-Medical): No Physical Activity: Insufficiently Active (12/31/2023) Exercise Vital Sign Days of Exercise per Week: 4 days Minutes of Exercise per Session: 30 min Intimate Partner Violence: Not on file Housing Stability: Low Risk (12/31/2023) Housing Stability Housing: Living Situation: I have a steady place to live PHYSICAL EXAMINATION: General: Awake and alert. No acute distress. Inspection: - Gait: Today he walks pretty well with minimal limp. Skin: The skin is intact. No significant swelling. The incisions are well healed with no signs of infection. Skin color and temperature are appropriate. Alignment: Hindfoot alignment about 4?? valgus bilaterally. Alignment of the midfoot and forefoot is satisfactory and symmetric bilaterally. Pulses: 2+ dorsalis pedis and posterior tibialis pulses bilaterally. ROM: There is no meaningful left ankle motion. He has decent left hindfoot motion. Strength: The patient has 5/5 strength with dorsiflexion, plantarflexion, inversion, and eversion bilaterally. Sensation: Sensation is intact to light touch in the deep peroneal, superficial peroneal, tibial, sural, and saphenous nerve distributions bilaterally. However, his sensation is altered in a stocking-glove pattern on the left up to the knee level. Tenderness: There is some vague tenderness to palpation along the distal metatarsals diffusely. No tenderness over the ankle joint. I can not reproduce his main pain along the anterior foot, ankle, or leg. Negative Tinel sign. DIAGNOSTIC STUDIES: Labs: - Imaging: Weight-bearing x-rays of left foot and ankle were obtained today and reviewed. This shows a well-healed and well-aligned ankle arthrodesis. The adjacent joints look to be relatively well maintained. There is some disuse osteopenia at the left forefoot. Otherwise, no obvious stress fractures or stress reactions. ASSESSMENT & PLAN: 1. Status post left ankle irrigation and debridement for septic arthritis 2. Left ankle arthrodesis with application of Nayeli spatial frame (May 13, 2018) 3. Status post left Nayeli spatial frame removal (August 21, 2018) 4. Left lower extremity intermittent sharp leg pains 5. Left forefoot pain, likely metatarsalgia The patient is main complaint is this sharp, stabbing, episodic pain starting at the dorsal midfootand radiating up the anterior leg to the knee. This seems to be neurogenic in nature. I can not seeanything from an orthopedic perspective that can explain this. In addition, he does have some activity-related forefoot pain, likely related to stress on the metatarsals. I would like to look into this further. I recommended an EMG, to rule out things such as peripheralneuropathy and/or radiculopathy. I would also like an ultrasound guided diagnosis of the deep peroneal nerve--but more specifically the entire length of the nerve starting at the sciatic nerve. I would like to see if there is anything impinging on the nerve anywhere along the length of the leg. If there is an obvious lesion, I would request an ultrasound-guided injection to that area for both diagnostic and therapeutic purposes. I will then see the patient back after these test to go over the results and discuss further treatment options. For now, I do not think that a below-knee amputation would be a reasonable solution to his, what seems like, neurogenic pain. Therefore, I would hold off on the visit with the amputee Clinic for now. The patient expressed understanding. Steve Villarreal M.D. documented in this encounter Plan of Treatment Scheduled Referrals Name Type Priority Associated Diagnoses Order Schedule Orthopedic Surgery office visit (clinic) Outpatient Referral Routine Expected: 01/07/2024, Expires: 04/07/2025 documented as of this encounter Results * EMG (02/29/2024 11:48 AM CDT) 02/29/2024 12:1 5 PM CDT Narrative EMG - 02/29/2024 1:03 PM CDT Table formatting from the original result was not included. 29-Feb-2024 ? Electromyography ? Final Report Study Number: 1 EMG Gold Frame Assembler: Brain Thorne 127 or [phone] Referred by: ALYSSIA MALLOY ([id number])) Referred for: Neuralgia Referral Code: RX: 001 [...] of radicular pain. N. Seven (127 or [phone])/SMB NERVE CONDUCTIONS ??Record Rep ?? Normal ??Normal [...] Electromyography Final Report Study Number: 1 EMG Gold Frame Assembler: Brain Thorne 127 or [phone] Referred by: ALYSSIA MALLOY ([id number] Referred for: Neuralgia Referral Code: RX: 001 [...] of radicular pain. N. Seven (127 or [phone])/SMB NERVE CONDUCTIONS Record Rep Normal Normal Distal [...] CDT Alyssia Malloy P.A.-C. NEUROLOGY ORDERAB LES [facility] EMG * US Lower Extremity Nerves Left (01/16/2024 10:08 AM CDT) Anatomical Region Laterality Modality Ultrasound RST LOS, Ultrasound ARZ LOS, Jade keletal FLA LOS Ultrasound Impressions 01/16/2024 4:40 [...] Following discussion with Bambi Greenfield PA-C pager ([phone]) by Dr. Scott the decision was made [...] nerve. Following discussion with Bambi Greenfield PA-C pager([phone]) by Dr. Scott the decision was made to defer injection due tothe lack of reproducible symptoms. Alyssia Malloy P.A.-C. IMG US PROCEDURES documented in this encounter Visit Diagnoses Diagnosis Fusion Ankle Status Post- Primary Pain Joint Foot Left Neuralgia Fusion Ankle Status Post Neuralgia Fusion Ankle Status Post Neuralgia documented in this encounter Care Teams Consular Officer Relationship Specialty Start Date End Date Elsewhere, Pcp PCP - General Family Medicine 04/22/18 documented as of this encounter
== END 2024-03-31 11:28 | disposition home or self-care (01) ==
LOC: MRI 11:28
PROVIDERS: PCP Internal Medicine; Visit Provider Orthopaedic Surgery Sports Medicine
DX: M25.511 Pain in right shoulder (principal); M75.01 Adhesive capsulitis of right shoulder; M75.101 Unspecified rotator cuff tear or rupture of right shoulder, not specified as traumatic; M75.51 Bursitis of right shoulder; M25.411 Effusion, right shoulder
CPT/HCPCS: 73221

== ENCOUNTER 2025-03-23 10:00 | Outpatient (CLI) | payer BC, SELFPAY | END 2025-03-23 10:01 | disposition home or self-care (01) | LOC: NFLDREF 03-26 06:39 | PROVIDERS: PCP Internal Medicine; Referring Provider Internal Medicine; Visit Provider Internal Medicine | DX: E78.5 Hyperlipidemia, unspecified (principal); R97.20 Elevated prostate specific antigen [PSA]; R53.83 Other fatigue; Z13.9 Encounter for screening, unspecified; Z12.5 Encounter for screening for malignant neoplasm of prostate | CPT/HCPCS: 80053; 80061; G0103 ==

== ENCOUNTER 2025-04-24 08:09 | Outpatient (CLI) | payer BC, SELFPAY | END 2025-04-24 08:10 | disposition home or self-care (01) | LOC: NFLDREF 08:11 | PROVIDERS: PCP Internal Medicine; Visit Provider Internal Medicine | DX: R50.9 Fever, unspecified (principal) | CPT/HCPCS: 80048; A9270 ==

== ENCOUNTER 2025-04-28 08:30 | Outpatient (CLI) | payer BC, SELFPAY ==
--- NOTE | 2025-04-28 09:00 | CRLHL7_ITS ---
For Patients: As a result of the Century Cures Act, medical imaging exams and procedure reports are released immediately into your electronic medical record. You may view this report before your referring provider. If you have questions, please contact your health care provider. Indication: FEVER, COUGH, LOW O2 Technique: CT Chest 75CC ISOVUE 370 intravenous contrast Please note that all CT scans at this facility use dose modulation, iterative reconstruction, and/or weight-based dosing when appropriate to reduce radiation dose to as low as reasonably achievable. Comparison: Chest x-ray 04/24/2025 Findings: Patchy multifocal tree-in-bud opacities are present within the lingula, left lower lobe and right lower lobe. Small consolidative focus is located within the periphery of the right lower lobe. Sequela of granulomatous disease with calcified right hilar lymph nodes and calcified right middle lobe granuloma. Mildly prominent mediastinal lymph nodes in the tracheoesophageal groove superiorly and right paratracheal spaces noted along with the subcarinal region with lymph nodes measuring up to 1 cm. Visualized thyroid is normal. No pleural or pericardial effusion. Adrenal glands normal. Small intrahepatic cysts are incidentally noted which measure up to 1.9 cm. No fracture. Impression: Multifocal infiltrates with reactive adenopathy. Please note that all CT scans at this facility use dose modulation, iterative reconstruction, and/or weight-based dosing when appropriate to reduce radiation dose to as low as reasonably achievable. Dictated by Yazan Madrid MD @ 04/28/2025 10:06:43 AM (Electronically Signed)
== END 2025-04-28 08:31 | disposition home or self-care (01) ==
PROVIDERS: PCP Internal Medicine; Visit Provider Internal Medicine
DX: R50.9 Fever, unspecified (principal); R05.9 Cough, unspecified; R53.83 Other fatigue
CPT/HCPCS: 71260; 86140; 87086; Q9967

== ENCOUNTER 2025-05-21 14:34 | Outpatient (CLI) | payer BC, SELFPAY | END 2025-05-21 14:35 | disposition home or self-care (01) | LOC: NFLDREF 14:35 | PROVIDERS: PCP Internal Medicine; Visit Provider Internal Medicine | DX: J18.9 Pneumonia, unspecified organism (principal) | CPT/HCPCS: 86140 ==